=== PATIENT | female | born 1935 | race Caucasian/White ===

== ENCOUNTER 2020-06-27 18:14 | Inpatient (IN) ==
[2020-06-27] MEDS ORDERED: ACETAMINOPHEN 1,000 MG/100 ML VIAL IV STA (18:30)
[2020-06-27] MEDS ORDERED: SODIUM CHLORIDE 0.9% 1000ML 1,000 ML IV SCH (18:30)
[2020-06-27] MEDS ORDERED: CIPROFLOXACIN HCL 0.3% OP SOLN 2.5 ML BTL OP ONE (18:32)
--- NOTE | 2020-06-27 18:35 | Emergency Department Note ---
Impression & Plan Weakness, Acute dehydration, Hypomagnesemia, Elevated troponin, Acute bacterial conjunctivitis ED Provider Note NAME: GERARDO GODDARD AGE: 85 SEX: F : 1935 ARRIVES VIA: Ambulance INFORMANT: [Patient][ems] ED PROVIDER(S): [Gonzalez Decker MD] CHIEF COMPLAINT: Illness HISTORY OF PRESENT ILLNESS: The patient is an 85-year-old female who presents by EMS for weakness. The patient states that yesterday sometime in early afternoon, she went to the bathroom. She sat down on the toilet. She was unable to get off the toilet and has been there for over 24 hours. Neighbors apparently found her and helped her up and called the ambulance. The patient states that she lives alone. She has a life alert system but it was not with her on the toilet. The patient denies any pain right now. She denies feeling thirsty. She has a deformity to her left elbow which has been ongoing for the last several months. She states she fell and broke the elbow and that her orthopedic doctors could not do much with it. She also has a bruise to the top of her right foot which is from dropping a bottle on the foot about a week ago. The patient has not had chest pain, cough, cold or fever. She has not had urinary complaints or vomiting. She states she has not eaten or drank anything in 24 hours, she has not taking her regular medications. REVIEW OF SYSTEMS: See HPI for pertinent positives and negatives. A total of ten systems were reviewed and were otherwise negative. PMHx/PSHx: See Below SOCIAL HISTORY: See Below. PHYSICAL EXAM: GENERAL: Patient is in no acute distress. HEENT: No acute trauma, normocephalic atraumatic, mucous membranes dry, no nasal congestion, no scleral icterus. She has some yellowish discharge from the right eye and her right upper and lower lids are somewhat erythematous. The patient's eye lids are partially pasted shut. NECK: No stridor, no adenopathy, no meningismus, trachea is midline. LUNGS: Clear to auscultation bilaterally, no wheeze, no rhonchi, breath sounds equal. HEART: Subtle systolic murmur, regular rate and rhythm. ABDOMEN: Soft, nontender, bowel sounds positive, no hernias, no peritonitis. EXTREMITIES: No cyanosis. There is a deformity to her left elbow as noted in her history. She has minimal movement of this left elbow. There is some contusion above and around the left elbow. The contusion appears old. There is some edema to the left upper extremity primarily to her fingers and hand. Patient has a contusion which appears older to the top of her mid right foot. No gross deformity. There is edema to both by lower extremities which is moderate in severity. NEUROLOGIC: Oriented x 3, no acute motor or sensory deficits, no focal weakness. SKIN: The patient has skin breakdown to the area of her buttock. It is in a pattern consistent with sitting on the toilet. There is no ulcer. She is not jaundiced. Rectal: Brown stool heme negative. DIFFERENTIAL DIAGNOSIS: Infection, dehydration, metabolic abnormality, rhabdomyolysis, debilitation, extremity fracture, hypo/hyperglycemia, electrolyte disturbance, anemia, hypoxia, cardiac sources, intracerebral event, toxicologic, neurologic, as well as other pathologies. EMERGENCY DEPARTMENT COURSE/PROCEDURES: ECG: Indication was weakness. The ECG shows a sinus rhythm with some PACs. The rate is 73. The QTc is 480. There is no ST elevation, no PVCs. Continuous Cardiac Monitoring: An order was placed for continuous cardiac monitoring. The monitor shows a rate of 71 with sinus rhythm with some PACs. Critical Care Note: I have personally spent greater than 33 minutes of critical care time in the direct management of this patient. This includes bedside care, interpretation of diagnostic studies, and testing, discussion with consultants, patient, and family members, and other required patient management activities. This 33 minutes is in excess of all separately billable procedures. MEDICAL DECISION MAKING: There is no leukocytosis. The patient is anemic with a hemoglobin of 10. A rectal exam was performed, stool was brown and heme-negative. There is a normal platelet count. There is no coagulopathy. Magnesium is low at 1.7, no kidney failure. Lactic acid level was elevated at 3, I suspect this is from dehydration. There were a few subtle liver enzyme elevations. Total CK was elevated at 1300, this is consistent with her being on the toilet for 24 hours. The value is not high enough to truly diagnose rhabdomyolysis. Patient appears to be in a euthyroid state. Urinalysis does not show infection. Chest film does not show pneumonia or CHF. The left elbow film shows chronic fracture/dislocation. The right foot film shows a potential fracture line in the first cuneiform versus potentially just severe arthritis. The patient received IV saline for hydration. She was given IV magnesium, IV Tylenol. She was given Cipro drops to the right eye. The patient is dehydrated, she has been sitting in 1 spot for over 24 hours. She is weak. She is doing poorly at home. She requires some hydration and electrolyte replacement. I did speak to the patient's [id number]. The family is concerned about her safety at home. I spoke to the patient about her findings, she realizes the need for hospitalization. I did speak with case management. The on-call hospitalist was consulted. Past Med/Surg History Medical History Hypertension Surgical History S/P appendectomy Social History Smoking Status: Never smoker Feels Safe at Home: Yes Allergies Allergies Allergy/AdvReac Type Severity Reaction Status Date / Time ezetimibe Allergy Intermediate HIVES Verified 06/27/20 19:21 levothyroxine Allergy Intermediate HIVES Verified 06/27/20 19:53 rofecoxib Allergy Unknown UNKN Verified 06/27/20 19:21 esomeprazole AdvReac Intermediate DIARRHE Verified 06/27/20 19:21 tramadol AdvReac Intermediate NAUSEA & Verified 06/27/20 19:21 VOMITING Home Meds Home Medications Medication Instructions Recorded Confirmed acetaminophen [Tylenol Arthritis] 1,300 mg PO Q12H 06/27/20 06/27/20 aspirin [Aspir-Low] 81 mg PO DAILY 06/27/20 06/27/20 atenolol [Tenormin] 50 mg PO BID 06/27/20 06/27/20 atorvastatin [Lipitor] 10 mg PO DAILY 06/27/20 06/27/20 calcium carbonate-vitamin D3 1 tab PO BID 06/27/20 06/27/20 [Os-Gabriel 500 + D3] carboxymethylcellulose sodium 2 drp OPHTHALMIC (EYE) BID PRN 06/27/20 06/27/20 [Refresh] cyanocobalamin (vitamin B-12) 1,000 mcg PO DAILY 06/27/20 06/27/20 doxycycline hyclate 50 mg PO Q12 06/27/20 06/27/20 levothyroxine [Synthroid] 75 mcg PO DAILY 06/27/20 06/27/20 lisinopril [Prinivil] 20 mg PO DAILY 06/27/20 06/27/20 lorazepam 0.5 mg PO BID PRN 06/27/20 06/27/20 Results & Data (ED) Vital Signs Vital Signs - 24 hr 06/27/20 18:15 06/27/20 18:55 06/27/20 19:00 Temperature 36.8 C Temperature Source Oral Pulse Rate 82 74 Respiratory Rate 20 18 Respiratory Effort / Characteristics Non-Labored Respiratory Depth Normal Blood Pressure 126/72 132/61 Blood Pressure Mean 90 94 Pulse Oximetry 100 95 Oxygen Delivery Method Room Air Room Air Sepsis Recent Fever Within 48 Hours No Sepsis New/Unexplained Change in Mental Status N/A Sepsis Action Taken by Nursing No Action Required 06/27/20 19:35 06/27/20 20:00 06/27/20 20:30 Temperature Temperature Source Pulse Rate 71 61 71 Respiratory Rate 18 16 18 Respiratory Effort / Characteristics Respiratory Depth Blood Pressure 113/58 L 123/52 L 116/46 L Blood Pressure Mean 67 85 59 Pulse Oximetry 99 96 96 Oxygen Delivery Method Sepsis Recent Fever Within 48 Hours Sepsis New/Unexplained Change in Mental Status Sepsis Action Taken by Nursing 06/27/20 21:00 06/27/20 21:30 06/27/20 22:00 Temperature Temperature Source Pulse Rate 70 67 61 Respiratory Rate 18 22 16 Respiratory Effort / Characteristics Respiratory Depth Blood Pressure 108/49 L 113/48 L 112/55 L Blood Pressure Mean 65 71 80 Pulse Oximetry 97 98 98 Oxygen Delivery Method Sepsis Recent Fever Within 48 Hours Sepsis New/Unexplained Change in Mental Status Sepsis Action Taken by Nursing 06/27/20 22:30 06/27/20 23:00 Temperature Temperature Source Pulse Rate 55 L 65 Respiratory Rate 18 18 Respiratory Effort / Characteristics Respiratory Depth Blood Pressure 104/51 L 108/52 L Blood Pressure Mean 67 82 Pulse Oximetry 98 97 Oxygen Delivery Method Sepsis Recent Fever Within 48 Hours Sepsis New/Unexplained Change in Mental Status Sepsis Action Taken by [facility] Medications Current Medication List: was personally reviewed by me Laboratory Data Attestation: I reviewed the patient's lab results. Result diagrams: 06/27/20 19:25 06/27/20 19:25 Lab Results 06/27/20 06/27/20 06/27/20 Range/Units 19:25 19:25 19:25 WBC (4.8-10.8) K/uL RBC (4.2-5.4) M/uL Hgb (12.0-16.0) g/dL Hct (37-47) % MCV (80-100) fL MCH (25-34) pg MCHC (32-36) g/dL RDW Std Deviation (36.4-46.3) fL RDW Coeff of Michael (11.5-14.5) % Plt Count (130-400) K/uL MPV (7.4-10.4) fL Immature Gran % (Auto) % Neut % (Auto) % Lymph % (Auto) % [place] % (Auto) % Eos % (Auto) % Baso % (Auto) % Reticulocyte % (Auto) (0.5-2.0) % Neut # (Auto) (1.4-6.5) K/uL Lymph # (Auto) (1.2-3.4) K/uL Chester # (Auto) (0.11-0.59) K/uL Eos # (Auto) (0-0.5) K/uL Baso # (Auto) (0-0.2) K/uL Reticulocyte # (0.02-0.10) 10^6/uL Immature Gran # (Auto) (0.00-0.02) K/uL Absolute Nucleated RBC (0-0) K/uL Nucleated RBC % (auto) % PT 10.8 (9.0-12.0) Seconds INR 1.0 (0.9-1.1) Sodium 140 (136-145) mmol/L Potassium 3.7 (3.5-5.1) mmol/L Chloride 110 H (98-107) mmol/L Carbon Dioxide 21 (21-32) mmol/L Anion Gap 9.0 (3-11) BUN 39 H (7-18) mg/dl Creatinine 0.79 (0.6-1.2) mg/dl Est Cr Clr Drug Dosing Not Reportable Est GFR ( Amer) 78.0 Est GFR (Non-Af Amer) 67.3 BUN/Creatinine Ratio 49.2 H (10-20) Glucose 146 H (70-99) mg/dl Lactate 3.0 H* (0.4-2.0) mmol/L Calcium 9.0 (8.5-10.1) mg/dl Magnesium 1.7 L (1.8-2.4) mg/dl Total Bilirubin 0.9 (0.2-1) mg/dl AST 85 H (15-37) U/L ALT 52 (12-78) U/L Alkaline Phosphatase 76 (45-117) U/L Total Creatine Kinase 1321 H (26-192) U/L Troponin I 2.940 H* (0-0.045) ng/ml Total Protein 5.5 L (6.4-8.2) gm/dl Albumin 2.9 L (3.4-5.0) gm/dl Globulin 2.6 (2.5-4.0) gm/dl Albumin/Globulin Ratio 1.1 (0.9-2) TSH 2.750 (0.300-4.500) uIu/ml Urine Color Urine Appearance (Clear) Urine pH (4.5-7.5) Ur Specific [place] (1.000-1.030) Urine Protein (Negative) Urine Glucose (UA) (Negative) Urine Ketones (Negative) Urine Blood (Negative) Urine Nitrite (Negative) Urine Bilirubin (Negative) Urine Urobilinogen (Negative) Ur Leukocyte Esterase (Negative) Urine WBC (Auto) (0-5) /hpf Urine RBC (Auto) (0-4) /hpf U Hyaline Cast (Auto) (0-5) /lpf U Epithel Cells (Auto) (0-5) /lpf Urine Bacteria (Auto) (Negative) 06/27/20 06/27/20 06/27/20 Range/Units 19:25 19:25 19:30 WBC 10.68 (4.8-10.8) K/uL RBC 3.56 L (4.2-5.4) M/uL Hgb 10.0 L (12.0-16.0) g/dL Hct 31.7 L (37-47) % MCV 89.0 (80-100) fL MCH 28.1 (25-34) pg MCHC 31.5 L (32-36) g/dL RDW Std Deviation 55.4 H (36.4-46.3) fL RDW Coeff of Michael 17.0 H (11.5-14.5) % Plt Count 311 (130-400) K/uL MPV 10.0 (7.4-10.4) fL Immature Gran % (Auto) 0.7 % Neut % (Auto) 86.3 % Lymph % (Auto) 6.2 % Chester % (Auto) 6.7 % Eos % (Auto) 0.0 % Baso % (Auto) 0.1 % Reticulocyte % (Auto) 1.7 (0.5-2.0) % Neut # (Auto) 9.22 H (1.4-6.5) K/uL Lymph # (Auto) 0.66 L (1.2-3.4) K/uL Chester # (Auto) 0.72 H (0.11-0.59) K/uL Eos # (Auto) 0.00 (0-0.5) K/uL Baso # (Auto) 0.01 (0-0.2) K/uL Reticulocyte # 0.06 (0.02-0.10) 10^6/uL Immature Gran # (Auto) 0.07 H (0.00-0.02) K/uL Absolute Nucleated RBC 0.03 H (0-0) K/uL Nucleated RBC % (auto) 0.3 % PT (9.0-12.0) Seconds INR (0.9-1.1) Sodium (136-145) mmol/L Potassium (3.5-5.1) mmol/L Chloride (98-107) mmol/L Carbon Dioxide (21-32) mmol/L Anion Gap (3-11) BUN (7-18) mg/dl Creatinine (0.6-1.2) mg/dl Est Cr Clr Drug Dosing Est GFR ( Amer) Est GFR (Non-Af Amer) BUN/Creatinine Ratio (10-20) Glucose (70-99) mg/dl Lactate (0.4-2.0) mmol/L Calcium (8.5-10.1) mg/dl Magnesium (1.8-2.4) mg/dl Total Bilirubin (0.2-1) mg/dl AST (15-37) U/L ALT (12-78) U/L Alkaline Phosphatase (45-117) U/L Total Creatine Kinase (26-192) U/L Troponin I (0-0.045) ng/ml Total Protein (6.4-8.2) gm/dl Albumin (3.4-5.0) gm/dl Globulin (2.5-4.0) gm/dl Albumin/Globulin Ratio (0.9-2) TSH (0.300-4.500) uIu/ml Urine Color Yellow Urine Appearance Clear (Clear) Urine pH 5.0 (4.5-7.5) Ur Specific [place] 1.025 (1.000-1.030) Urine Protein 1+ H (Negative) Urine Glucose (UA) Negative (Negative) Urine Ketones 1+ H (Negative) Urine Blood Negative (Negative) Urine Nitrite Negative (Negative) Urine Bilirubin Negative (Negative) Urine Urobilinogen Negative (Negative) Ur Leukocyte Esterase Negative (Negative) Urine WBC (Auto) 1-5 (0-5) /hpf Urine RBC (Auto) 0-4 (0-4) /hpf U Hyaline Cast (Auto) 5-10 H (0-5) /lpf U Epithel Cells (Auto) 5-10 H (0-5) /lpf Urine Bacteria (Auto) Negative (Negative) Administered Medications Lactated Ringer's (Lr) 1,000 mls @ 150 mls/hr IV .Q6H40M STA Stop: 06/28/20 05:49 Last Admin: 06/27/20 23:24 Dose: 150 mls/hr Documented by: [id number] Discontinued Medications Ciprofloxacin (Ciprofloxacin Hcl 0.3% Op Soln 2.5 Ml Btl) 1 drops OP NOW ONE Stop: 06/27/20 18:33 Last Admin: 06/27/20 19:10 Dose: 1 drops Documented by: [id number] Sodium Chloride (Nss 1000ml) 1,000 mls @ 999 mls/hr IV .Q1H1M MADELINE Stop: 06/27/20 19:30 Last Infusion: 06/27/20 20:44 Dose: 0 mls/hr Documented by: [id number] Admin: 06/27/20 19:43 Dose: 999 mls/hr Documented by: [id number] Acetaminophen (Ofirmev) 1,000 mg in 100 mls @ 400 mls/hr IV NOW STA Stop: 06/27/20 18:44 Last Infusion: 06/27/20 19:58 Dose: 0 mls/hr Documented by: [id number] Admin: 06/27/20 19:43 Dose: 400 mls/hr Documented by: [id number] Magnesium Sulfate/Dextrose (Magnesium Sulfate / D5w) 1 gm in 100 mls @ 100 mls/hr IV NOW STA Stop: 06/27/20 21:10 Last Infusion: 06/27/20 21:33 Dose: 0 mls/hr Documented by: [id number] Admin: 06/27/20 20:33 Dose: 100 mls/hr Documented by: [id number] Imaging Data Radiologist's Impression: XR chest 1V portable HISTORY: 85 years-old Female weakness acute weakness status post fall COMPARISON: Acute abdominal series radiographs 06/11/2014 TECHNIQUE: Supine AP view of the chest FINDINGS: Cardiomegaly. Calcified plaque of the thoracic aortic arch. Pleural thickening of the lung apices. No pneumothorax, pleural effusion, overt pulmonary edema or airspace consolidation typical for pneumonia. Skin folds project over the right lung base. Degenerative changes of the shoulders and spine. Findings suggest prior resection of the distal left clavicle. IMPRESSION: No acute process. XR elbow LT min 3V routine HISTORY: 85 years-old Female deformity acute left elbow pain status post fall COMPARISON: None TECHNIQUE: 3 views of the left elbow FINDINGS: Demineralized appearance of the bones. Periarticular ossifications are present. There is dislocation of the radiocapitellar and trochlear olecranon articulations with chronic remodeling changes. There is a 4.4 cm corticated ossification along the posterior margin of the elbow suggests remote fracture fragment. No definitive acute fracture identified. Soft tissue prominence from the elbow is suggestive of a joint effusion. IMPRESSION: Grossly abnormal appearance of the elbow is suggestive of chronic dislocation/erosion with associated remodeling changes. A neuropathic joint could cause this appearance. No definitive acute fracture identified, however evaluation is limited secondary to positioning and bone demineralization. XR foot RT min 3V routine HISTORY: 85 years-old Female trauma, contusion acute posttraumatic right foot pain COMPARISON: None TECHNIQUE: 3 views of the right foot FINDINGS: Demineralized appearance of the bones with severe multifocal osteoarthritis. Chronic appearing dislocation with remodeling changes throughout the metatarsal- phalangeal joints. Linear lucency involves the medial cortex of the first cuneiform. There is mild soft tissue swelling throughout the forefoot. No acute displaced fracture or dislocation. Chronic erosive/resorptive changes are noted involving the distal fifth metatarsal. Pes planus deformity with midfoot collapse and subtalar degenerative bony fusion. IMPRESSION: 1. Demineralized appearance of the bones with chronic findings as above. 2. Mild forefoot soft tissue swelling with linear longitudinal lucency involving the medial cortex of the first cuneiform. Correlate with point tenderness to exclude acute nondisplaced fracture. Blood Pressure Blood Pressure Findings: Normal blood pressure Discharge Plan Visit Data Chief Complaint: Illness ED Provider: Gonzalez Decker Discharge Problem: Weakness, Acute dehydration, Hypomagnesemia, Elevated troponin, Acute bacterial conjunctivitis Patient Disposition: Admitted As Inpatient Condition: Fair Forms Stand Alone Forms: [facility] Prescriptions Prescriptions: No Action atorvastatin [Lipitor] 10 mg tablet 10 mg PO DAILY RF: 0 lisinopril [Prinivil] 20 mg tablet 20 mg PO DAILY RF: 0 doxycycline hyclate 50 mg capsule 50 mg PO Q12 RF: 0 cyanocobalamin (vitamin B-12) 1,000 mcg Tablet 1,000 mcg PO DAILY RF: 0 aspirin [Aspir-Low] 81 mg Tablet,Delayed Release (Dr/Ec) 81 mg PO DAILY RF: 0 acetaminophen [Tylenol Arthritis] 650 mg Tablet Extended Release 1,300 mg PO Q12H RF: 0 levothyroxine [Synthroid] 75 mcg tablet 75 mcg PO DAILY RF: 0 lorazepam 0.5 mg tablet 0.5 mg PO BID PRN (Reason: Anxiety) RF: 0 atenolol [Tenormin] 50 mg tablet 50 mg PO BID RF: 0 calcium carbonate-vitamin D3 [Os-Gabriel 500 + D3] 500 mg(1,250mg) -200 unit Tablet 1 tab PO BID RF: 0 Refresh 1 % Drops, Liquid Gel 2 drp OPHTHALMIC (EYE) BID PRN (Reason: ..) RF: 0 Referrals Referrals: PCP,NO [Primary Care Provider] - Discharge Problem: Acute bacterial conjunctivitis Qualifiers: Laterality: right Qualified Code(s): H10.31 - Unspecified acute conjunctivitis, right eye
--- NOTE | 2020-06-27 19:18 | XRay Report ---
XR chest 1V portable HISTORY: 85 years-old Female weakness acute weakness status post fall COMPARISON: Acute abdominal series radiographs 06/11/2014 TECHNIQUE: Supine AP view of the chest FINDINGS: Cardiomegaly. Calcified plaque of the thoracic aortic arch. Pleural thickening of the lung apices. No pneumothorax, pleural effusion, overt pulmonary edema or airspace consolidation typical for pneumoni a. Skin folds project over the right lung base. Degenerative changes of the shoulders and spine. Find ings suggest prior resection of the distal left clavicle. IMPRESSION: No acute process. ACT 112: Negative or not required by law. The above report was generated using voice recognition software. It may contain grammatical, syntax o r spelling errors. Electronically signed by: Branden Morton M.D. 06/27/2020 7:17 PM
--- NOTE | 2020-06-27 19:22 | XRay Report ---
XR elbow LT min 3V routine HISTORY: 85 years-old Female deformity acute left elbow pain status post fall COMPARISON: None TECHNIQUE: 3 views of the left elbow FINDINGS: Demineralized appearance of the bones. Periarticular ossifications are present. There is dislocation of the radiocapitellar and trochlear olecranon articulations with chronic remodeling changes. There i s a 4.4 cm corticated ossification along the posterior margin of the elbow suggests remote fracture f ragment. No definitive acute fracture identified. Soft tissue prominence from the elbow is suggestive of a joint effusion. IMPRESSION: Grossly abnormal appearance of the elbow is suggestive of chronic dislocation/erosion wit h associated remodeling changes. A neuropathic joint could cause this appearance. No definitive acut e fracture identified, however evaluation is limited secondary to positioning and bone demineralizati on. ACT 112: Negative or not required by law. The above report was generated using voice recognition software. It may contain grammatical, syntax o r spelling errors. Electronically signed by: Branden Morton M.D. 06/27/2020 7:21 PM
--- NOTE | 2020-06-27 19:25 | XRay Report ---
XR foot RT min 3V routine HISTORY: 85 years-old Female trauma, contusion acute posttraumatic right foot pain COMPARISON: None TECHNIQUE: 3 views of the right foot FINDINGS: Demineralized appearance of the bones with severe multifocal osteoarthritis. Chronic appearing disloc ation with remodeling changes throughout the metatarsal-phalangeal joints. Linear lucency involves th e medial cortex of the first cuneiform. There is mild soft tissue swelling throughout the forefoot. N o acute displaced fracture or dislocation. Chronic erosive/resorptive changes are noted involving the distal fifth metatarsal. Pes planus deformity with midfoot collapse and subtalar degenerative bony f usion. IMPRESSION: 1. Demineralized appearance of the bones with chronic findings as above. 2. Mild forefoot soft tissue swelling with linear longitudinal lucency involving the medial cortex of the first cuneiform. Correlate with point tenderness to exclude acute nondisplaced fracture. ACT 112: Negative or not required by law. The above report was generated using voice recognition software. It may contain grammatical, syntax o r spelling errors. Electronically signed by: Branden Morton M.D. 06/27/2020 7:23 PM
[2020-06-27 19:41] LABS: Basophils # (auto) 0.01 K/uL (0-0.2); Basophils % (auto) 0.1 %; Hematocrit (blood only) 31.7 % (37-47); Immature Granulocytes # (auto) 0.07 K/uL (0.00-0.02); Immature Granulocytes % (auto) 0.7 %; Lymphocytes # (auto) 0.66 K/uL (1.2-3.4); Lymphocytes % (auto) 6.2 %; Mean Corpuscular Hemoglobin 28.1 pg (25-34); Mean Corpuscular Hgb Conc 31.5 g/dL (32-36); Monocytes # (auto) 0.72 K/uL (0.11-0.59); Monocytes % (auto) 6.7 %; Neutrophils # (auto) 9.22 K/uL (1.4-6.5); Neutrophils % (auto) 86.3 %; Nucleated RBC # (auto) 0.03 K/uL (0-0); Nucleated RBC % (auto) 0.3 %; Platelet Count 311 K/uL (130-400); RDW Standard Deviation 55.4 fL (36.4-46.3); Red Blood Count 3.56 M/uL (4.2-5.4); White Blood Count 10.68 K/uL (4.8-10.8)
[2020-06-27 19:44] LABS: Appearance Urine Clear (Clear); Bacteria Urine Automated Negative (Negative); Bilirubin Urine Negative (Negative); Blood Urine Negative (Negative); Color Urine Yellow; Glucose Urine UA Negative (Negative); Ketones Urine 1+ (Negative); Leukocyte Esterase Urine Negative (Negative); Nitrite Urine Negative (Negative); Protein Urine 1+ (Negative); RBC Urine Automated 0-4 /hpf (0-4); Specific Gravity Urine 1.025 (1.000-1.030); Urobilinogen Urine Negative (Negative)
[2020-06-27 19:52] LABS: Prothrombin Time 10.8 Seconds (9.0-12.0)
[2020-06-27 20:00] LABS: Alanine Aminotransferase 52 U/L (12-78); Albumin Level 2.9 gm/dl (3.4-5.0); Aspartate Aminotransferase 85 U/L (15-37); BUN Creatinine Ratio 49.2 (10-20); Blood Urea Nitrogen 39 mg/dl (7-18); Carbon Dioxide 21 mmol/L (21-32); Chloride 110 mmol/L (98-107); Est GFR (Non-African American) 67.3; Glucose 146 mg/dl (70-99); Magnesium 1.7 mg/dl (1.8-2.4); Potassium 3.7 mmol/L (3.5-5.1); Sodium 140 mmol/L (136-145)
[2020-06-27] MEDS ORDERED: MAGNESIUM SULFATE / D5W 1 GM/100 ML BAG IV STA (20:11)
[2020-06-27 20:21] LABS: Albumin Globulin Ratio 1.1 (0.9-2); Alkaline Phosphatase 76 U/L (45-117); Bilirubin,Total 0.9 mg/dl (0.2-1); Creatine Kinase 1321 U/L (26-192); Globulin 2.6 gm/dl (2.5-4.0); Total Protein 5.5 gm/dl (6.4-8.2)
[2020-06-27] MEDS ORDERED: LACTATED RINGER'S 1,000 ML IV STA (23:10)
[2020-06-27 23:25] LABS: Reticulocyte % 1.7 % (0.5-2.0); Reticulocytes # 0.06 10^6/uL (0.02-0.10)
--- NOTE | 2020-06-27 23:48 | History & Physical Report ---
Date of Service June 27, 2020 Assessment & Plan (1) Rhabdomyolysis: Secondary to immobility from worsening rheumatoid arthritis Troponin elevation, transaminitis secondary to rhabdomyolysis New onset anemia, possibly from accumulated bruising from recurrent falls in the last year (Stool FOBT done by ER provider negative) Worsening left elbow pain, history L elbow dislocation/olecranon process fracture (03/2020) status post conservative management Traumatic right foot swelling hypertension, BP on the lower side hyperlipidemia on statin Rx hypothyroidism, euthyroid as of today's TSH hx TIA/PVD as per records DM2, diet-controlled, well-controlled as of recent outpatient hemoglobin A1c of 6.07 April 2020 Functional disability Malnutrition (low BMI) Medical telemetry IVF, follow CPK Follow troponin, TTE if with progression Orthopedics consult RE worsening left elbow pain/swelling and traumatic right foot swelling Appropriate to decrease maintenance beta-wendy medication for now and to hold lisinopril given borderline blood pressure. Anemia work-up, transfuse PRBC if hemoglobin less than 8 and or for symptomatic anemia ISS BG goal [id number] Nutrition consult RE low BMI PT OT eval Social service RE discharge planning (patient amenable to placement pending PT OT assessment and recommendations) DVT prophylaxis. Heparin subcu Full code Text document was generated using [employer] voice recognition software. It may contain grammatical or spelling errors. Kindly contact undersigned for clarification of any documentation item in question. History of Present Illness Chief Complaint: Unable to get up from the commode since yesterday Primary Care Provider: Dr. Ochoa History obtained from patient Cindy and records. Medical history significant for rheumatoid arthritis, hypertension, hyperlipidemia, hypothyroidism, hx TIA/PVD as per records, DM2 diet-controlled. Patient seen at [facility] ER last November, for right elbow injury secondary to fall. X-ray showed chronic severe deformity of right elbow characterized by destruction of normal bony articular joint surfaces, Calcifications in the soft tissues and joint space. No acute pathology found. Conservative management by patient's orthopedic doctor from [place]. 3 months ago patient noted pain and swelling on the left elbow. Outpatient x-ray showed left elbow dislocation and olecranon process fracture, severe multifocal arthritis. Marked osteoporosis. Temporary casting ordered by academic specialist as per patient. 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 Increased trouble with performing activities of daily living with elbow problems the last few months. Some trouble with ambulation as well. Periodic home health visits. Worsening left elbow pain/swelling the last 3 weeks without fever, chills. Patient went to go to the bathroom after dinner last night. Had trouble getting up from the commode. Patient denies chest pain, shortness of breath, cough, abdominal pain, diarrhea, black/bloody stools, headache, syncope symptoms. At some point overnight, patient dropped a water bottle on her right foot leading to a mildly painful swelling. Neighbors eventually heard patient yelling from her home. Patient brought to the ER for evaluation. Medical History as above Surgical History : Knee surgeries, appendectomy, ovarian cyst removal, cataract surgery, elbow nodule removal Family History : Rheumatoid arthritis, diabetes, heart disease, stroke Personal/Social history : Non-smoker, no EtOH intake, retired bank employee, lives by herself Allergies Allergy/AdvReac Type Severity Reaction Status Date / Time ezetimibe Allergy Intermediate HIVES Verified 06/27/20 19:21 levothyroxine Allergy Intermediate HIVES Verified 06/27/20 19:53 rofecoxib Allergy Unknown UNKN Verified 06/27/20 19:21 esomeprazole AdvReac Intermediate DIARRHE Verified 06/27/20 19:21 tramadol AdvReac Intermediate NAUSEA & Verified 06/27/20 19:21 VOMITING Home Medications Home Medications Medication Instructions Recorded Confirmed Type acetaminophen [Tylenol Arthritis] 1,300 mg PO Q12H 06/27/20 06/27/20 History aspirin [Aspir-Low] 81 mg PO DAILY 06/27/20 06/27/20 History atenolol [Tenormin] 50 mg PO BID 06/27/20 06/27/20 History atorvastatin [Lipitor] 10 mg PO DAILY 06/27/20 06/27/20 History calcium carbonate-vitamin D3 1 tab PO BID 06/27/20 06/27/20 History [Os-Gabriel 500 + D3] carboxymethylcellulose sodium 2 drp OPHTHALMIC (EYE) BID PRN 06/27/20 06/27/20 History [Refresh] cyanocobalamin (vitamin B-12) 1,000 mcg PO DAILY 06/27/20 06/27/20 History doxycycline hyclate 50 mg PO Q12 06/27/20 06/27/20 History levothyroxine [Synthroid] 75 mcg PO DAILY 06/27/20 06/27/20 History lisinopril [Prinivil] 20 mg PO DAILY 06/27/20 06/27/20 History lorazepam 0.5 mg PO BID PRN 06/27/20 06/27/20 History Past Med/Surg History Medical History Hypertension Surgical History S/P appendectomy Social History Smoking Status: Never smoker Hx Alcohol Use: No Hx Substance Use: No Preferred Language: Gibraltarian Communication Ability: Effective Mill Set Up Required: No Beliefs That Will Affect Care: None Current Living Situation: Alone Feels Safe at Home: Yes Safety Concerns: Feels Safe At This Time Assistive Devices: Denture - Upper and Denture - Lower Review of Systems Review of Systems: As per HPI, all 10 systems reviewed, chronic dry eyes, all other ROS negative Physical Exam Physical Exam: GENERAL: Comfortable, pleasant, underweight, frail looking, no respiratory distress SKIN: Pallor, warm HEENT: Pale palpebral conjunctivae, R eye closed from chronic dry eye condition as per patient, dry buccal mucosa NECK : Supple, no tenderness CHEST : CTA, no tenderness HEART : RRR, no obvious murmurs ABDOMEN: Soft, nontender EXTREMITIES : Chronic contractures upper extremities, bilateral elbow swelling L>R with minimal tenderness, minimal right foot swelling with tenderness NEUROLOGIC : Coherent, no facial asymmetry, no other gross focality Results & Data Results & Data ([facility]) Vital Signs (Past 12 Hours) Vital Signs Temp Pulse Resp BP Pulse Ox 06/27/20 23:00 65 18 108/52 L 97 06/27/20 22:30 55 L 18 104/51 L 98 06/27/20 22:00 61 16 112/55 L 98 06/27/20 21:30 67 22 113/48 L 98 06/27/20 21:00 70 18 108/49 L 97 06/27/20 20:30 71 18 116/46 L 96 06/27/20 20:00 61 16 123/52 L 96 06/27/20 19:35 71 18 113/58 L 99 06/27/20 19:00 74 18 132/61 95 06/27/20 18:15 36.8 C 82 20 126/72 100 Laboratory Results Laboratory Results WBC 10.68 K/uL (4.8-10.8) 06/27/20 19:25 RBC 3.56 M/uL (4.2-5.4) L 06/27/20 19:25 Hgb 10.0 g/dL (12.0-16.0) L 06/27/20 19:25 Hct 31.7 % (37-47) L 06/27/20 19:25 MCV 89.0 fL (80-100) 06/27/20 19: MCH 28.1 pg (25-34) 06/27/20 19: MCHC 31.5 g/dL (32-36) L 06/27/20 19: RDW Std Deviation 55.4 fL (36.4-46.3) H 06/27/20 19:25 RDW Coeff of Michael 17.0 % (11.5-14.5) H 06/27/20: Plt Count 311 K/uL (130-400) 06/27/20 19:25 MPV 10.0 fL (7.4-10.4) 06/27/20 19:25 Immature Gran % (Auto) 0.7 % 06/27/20 19:25 Neut % (Auto) 86.3 % 06/27/20 19:25 Lymph % (Auto) 6.2 % 06/27/20 19:25 [place] % (Auto) 6.7 % 06/27/20 19:25 Eos % (Auto) 0.0 % 06/27/20 19: Baso % (Auto) 0.1 % 06/27/20 19:25 Reticulocyte % (Auto) 1.7 % (0.5-2.0) 06/27/20 19:25 Neut # (Auto) 9.22 K/uL (1.4-6.5) H 06/27/20 19:25 Lymph # (Auto) 0.66 K/uL (1.2-3.4) L 06/27/20 19:25 [place] # (Auto) 0.72 K/uL (0.11-0.59) H 06/27/20 19:25 Eos # (Auto) 0.00 K/uL (0-0.5) 06/27/20 19:25 Baso # (Auto) 0.01 K/uL (0-0.2) 06/27/20 19:25 Reticulocyte # 0.06 10^6/uL (0.02-0.10) 06/27/20 19:25 Immature Gran # (Auto) 0.07 K/uL (0.00-0.02) H 06/27/20 19:25 Absolute Nucleated RBC 0.03 K/uL (0-0) H 06/27/20 19:25 Nucleated RBC % (auto) 0.3 % 06/27/20 19:25 PT 10.8 Seconds (9.0-12.0) 06/27/20 19:25 INR 1.0 (0.9-1.1) 06/27/20 19:25 Sodium 140 mmol/L (136-145) 06/27/20 19:25 Potassium 3.7 mmol/L (3.5-5.1) 06/27/20 19:25 Chloride 110 mmol/L (98-107) H 06/27/20 19:25 Carbon Dioxide 21 mmol/L (21-32) 06/27/20 19:25 Anion Gap 9.0 (3-11) 06/27/20 19:25 BUN 39 mg/dl (7-18) H 06/27/20 19:25 Creatinine 0.79 mg/dl (0.6-1.2) 06/27/20 19:25 Est Cr Clr Drug Dosing Not Reportable 06/27/20 19:25 Est GFR ( Amer) 78.0 06/27/20 19:25 Est GFR (Non-Af Amer) 67.3 06/27/20 19:25 BUN/Creatinine Ratio 49.2 (10-20) H 06/27/20 19:25 Glucose 146 mg/dl (70-99) H 06/27/20 19:25 Lactate 3.0 mmol/L (0.4-2.0) H* 06/27/20 19:25 Calcium 9.0 mg/dl (8.5-10.1) 06/27/20 19:25 Magnesium 1.7 mg/dl (1.8-2.4) L 06/27/20 19:25 Total Bilirubin 0.9 mg/dl (0.2-1) 06/27/20 19:25 AST 85 U/L (15-37) H 06/27/20 19:25 ALT 52 U/L (12-78) 06/27/20 19:25 Alkaline Phosphatase 76 U/L (45-117) 06/27/20 19:25 Total Creatine Kinase 1321 U/L (26-192) H 06/27/20 19:25 Troponin I 2.940 ng/ml (0-0.045) H* 06/27/20 19:25 Total Protein 5.5 gm/dl (6.4-8.2) L 06/27/20 19:25 Albumin 2.9 gm/dl (3.4-5.0) L 06/27/20 19:25 Globulin 2.6 gm/dl (2.5-4.0) 06/27/20 19:25 Albumin/Globulin Ratio 1.1 (0.9-2) 06/27/20 19:25 TSH 2.750 uIu/ml (0.300-4.500) 06/27/20 19:25 Urine Color Yellow 06/27/20 19:30 Urine Appearance Clear (Clear) 06/27/20 19: Urine pH 5.0 (4.5-7.5) 06/27/20 19:30 Ur Specific [place] 1.025 (1.000-1.030) 06/27/20 19:30 Urine Protein 1+ (Negative) H 06/27/20 19:30 Urine Glucose (UA) Negative (Negative) 06/27/20 19:30 Urine Ketones 1+ (Negative) H 06/27/20 19:30 Urine Blood Negative (Negative) 06/27/20 19:30 Urine Nitrite Negative (Negative) 06/27/20 19:30 Urine Bilirubin Negative (Negative) 06/27/20 19:30 Urine Urobilinogen Negative (Negative) 06/27/20 19:30 Ur Leukocyte Esterase Negative (Negative) 06/27/20 19:30 Urine WBC (Auto) 1-5 /hpf (0-5) 06/27/20 19:30 Urine RBC (Auto) 0-4 /hpf (0-4) 06/27/20 19:30 U Hyaline Cast (Auto) 5-10 /lpf (0-5) H 06/27/20 19:30 U Epithel Cells (Auto) 5-10 /lpf (0-5) H 06/27/20 19:30 Urine Bacteria (Auto) Negative (Negative) 06/27/20 19:30 stool FOBT negative as per ER provider Diagnostic Findings Chest x-ray : No acute process. Left foot x-ray: 1. Demineralized appearance of the bones with chronic findings as above. 2. Mild forefoot soft tissue swelling with linear longitudinal lucency involving the medial cortex of the first cuneiform. Correlate with point tenderness to exclude acute nondisplaced fracture. Left elbow x-ray: Grossly abnormal appearance of the elbow is suggestive of chronic dislocation/erosion with associated remodeling changes. A neuropathic joint could cause this appearance. No definitive acute fracture identified, however evaluation is limited secondary to positioning and bone demineralization. EKG as per my interpretation : Rate 75, NSR, normal axis, no ischemia, PVCs
[2020-06-28] MEDS ORDERED: DEXTROSE 50% 50 ML SYRINGE IV PRN (01:25)
[2020-06-28] MEDS ORDERED: GLUCOSE 40% GEL 15 GM TUBE PO PRN (01:25)
[2020-06-28] MEDS ORDERED: PROMETHAZINE HCL 6.25 MG in SODIUM CHLORIDE 0.9% 50 ML IV PRN (01:25)
[2020-06-28] MEDS ORDERED: TRAMADOL HCL 50 MG TABLET PO PRN (01:25)
[2020-06-28] MEDS ORDERED: CARBOHYDRATES FOR HYPOGLYCEMIA PO PRN (01:25)
[2020-06-28] MEDS ORDERED: LORazepam 0.5 MG TAB PO PRN (01:25)
[2020-06-28] MEDS ORDERED: GLUCOSE 10 TABS/TUBE PO PRN (01:25)
[2020-06-28] MEDS ORDERED: GLUCAGON FOR INJ 1 MG VIAL SQ PRN (01:25)
[2020-06-28] MEDS: INSULIN ASPART 100 UNITS/ML 3 ML PEN SC SCH ×5 (04:31→20:51)
[2020-06-28] MEDS ORDERED: LACTATED RINGER'S 1,000 ML IV SCH (06:00)
[2020-06-28 06:05] LABS: Hematocrit (blood only) 25.3 % (37-47); Hemoglobin 8.3 g/dL (12.0-16.0); Immature Granulocytes # (auto) 0.04 K/uL (0.00-0.02); Immature Granulocytes % (auto) 0.6 %; Mean Corpuscular Hgb Conc 32.8 g/dL (32-36); Mean Corpuscular Volume 88.5 fL (80-100); Mean Platelet Volume 9.5 fL (7.4-10.4); Monocytes # (auto) 0.67 K/uL (0.11-0.59); Monocytes % (auto) 10.4 %; Neutrophils # (auto) 4.81 K/uL (1.4-6.5); Platelet Count 239 K/uL (130-400); RDW Coefficient of Variation 17.2 % (11.5-14.5); RDW Standard Deviation 55.8 fL (36.4-46.3); Red Blood Count 2.86 M/uL (4.2-5.4); Reticulocyte % 1.8 % (0.5-2.0); Reticulocytes # 0.05 10^6/uL (0.02-0.10); White Blood Count 6.42 K/uL (4.8-10.8)
[2020-06-28] MEDS: LEVOTHYROXINE SODIUM 75 MCG TABLET PO SCH (06:24)
[2020-06-28] MEDS: HEPARIN SOD 5,000 UNIT/0.5 ML VIAL SQ SCH ×3 (06:26→21:07)
[2020-06-28 06:55] LABS: Albumin Level 2.3 gm/dl (3.4-5.0); Calcium 8.1 mg/dl (8.5-10.1); Creatinine Clr Calc Pharmacy 43.9 ml/min; Est GFR (African American) 92.5; Est GFR (Non-African American) 79.8; Ferritin 62.9 ng/ml (8-388); Globulin 2.3 gm/dl (2.5-4.0); Potassium 3.8 mmol/L (3.5-5.1); Total Protein 4.6 gm/dl (6.4-8.2); Troponin I 1.87 ng/ml (0-0.045)
[2020-06-28] MEDS ORDERED: LACTATED RINGER'S 1,000 ML IV ONE (07:08)
[2020-06-28 07:11] LABS: Partial Thromboplastin Ratio 0.9; Partial Thromboplastin Time 25.4 Seconds (21.0-31.0)
[2020-06-28] MEDS: CALCIUM 600MG + VIT D 400 IU TAB PO SCH ×2 (07:49→19:35)
[2020-06-28] MEDS: CYANOCOBALAMIN 500 MCG TABLET (VITAMIN B-12) PO SCH (07:49)
[2020-06-28] MEDS: ATENOLOL 25 MG TABLET PO SCH (07:49)
[2020-06-28] MEDS: ASPIRIN 81 MG ECTAB PO SCH (07:50)
[2020-06-28] MEDS: ARTIFICIAL TEARS OP SCH ×2 (07:52→19:35)
[2020-06-28] MEDS ORDERED: ATENOLOL 25 MG TABLET PO SCH (09:00)
--- NOTE | 2020-06-28 11:30 | Electrocardiogram Report ---
Test Reason : Blood Pressure : / mmHG Vent. Rate : 073 BPM Atrial Rate : 073 BPM P-R Int : 130 ms QRS Dur : 070 ms QT Int : 436 ms P-R-T Axes : 047 011 029 degrees QTc Int : 480 ms Sinus rhythm with Premature atrial complexes with Aberrant conduction Nonspecific ST abnormality Abnormal ECG No previous ECGs available Confirmed by Yony Horne ([id number]) on 06/28/2020 11:30:25 AM Referred By: REFERRED SELF Confirmed By:Yony Horne
[2020-06-28 13:19] LABS: Folate (Folic Acid) 8.23 ng/ml (>5.38)
--- NOTE | 2020-06-28 14:32 | Cardiology Consultation ---
Date of Consultation June 28, 2020 Assessment & Plan (1) Rhabdomyolysis: (2) Elevated troponin: (3) Rheumatoid arthritis flare: Patient asymptomatic from a cardiac standpoint. I do believe her troponin elevation is secondary to her rhabdomyolysis. We will check an echocardiogram for completeness sake. No cardiac medications were instituted at this point. History of Present Illness Reason for Consultation: Elevated troponin Requesting Physician: Dr. Corona Attending Physician: Nidhi Corona MD History of Present Illness It was my pleasure to see Mrs. Bueno in cardiac consultation today June 28, 2020. She is a very pleasant 85-year-old woman who suffers from severe rheumatic arthritis. Last evening she went to the commode but then was too weak to stand up. Unfortunately, she was stuck on the toilet for several hours until she was finally able to ambulate. At that time she came into the emergency department. Upon arrival her troponin was found to be elevated and she was admitted to telemetry. Currently she states that her lower back side is still sore but otherwise she is feeling well. She denies experiencing any cardiac complaints of chest pain, shortness of breath, palpitations, lightheadedness, dizziness or syncope. Allergies Allergy/AdvReac Type Severity Reaction Status Date / Time ezetimibe Allergy Intermediate HIVES Verified 06/27/20 19:21 levothyroxine Allergy Intermediate HIVES Verified 06/27/20 19:53 rofecoxib Allergy Unknown UNKN Verified 06/27/20 19:21 esomeprazole AdvReac Intermediate DIARRHE Verified 06/27/20 19:21 tramadol AdvReac Intermediate NAUSEA & Verified 06/27/20 19:21 VOMITING Home Medications Home Medications Medication Instructions Recorded Confirmed Type aspirin 81 mg PO DAILY 06/27/20 06/27/20 History atorvastatin [Lipitor] 10 mg PO DAILY 06/27/20 06/27/20 History calcium carbonate-vitamin D3 1 tab PO BID 06/27/20 06/27/20 History [Os-Gabriel 500 + D3] carboxymethylcellulose sodium 2 drp OPHTHALMIC (EYE) BID PRN 06/27/20 06/27/20 History cyanocobalamin (vitamin B-12) 1,000 mcg PO DAILY 06/27/20 06/27/20 History levothyroxine [Synthroid] 75 mcg PO DAILY 06/27/20 06/27/20 History lisinopril [Prinivil] 20 mg PO DAILY 06/27/20 06/27/20 History lorazepam 0.5 mg PO BID PRN 06/27/20 06/27/20 History acetaminophen 650 mg PO Q6H PRN #0 tab 06/30/20 06/27/20 Rx atenolol 12.5 mg PO BID 30 Days #30 tab 06/30/20 Rx doxycycline hyclate 20 mg PO DAILY 06/30/20 06/30/20 History lidocaine [Anecream] 1 applic EXT Q6H #30 g 06/30/20 Rx Patient History Medical History Elevated troponin Hypertension Hypomagnesemia Surgical History S/P appendectomy Social History Smoking Status: Never smoker Hx Alcohol Use: No Hx Substance Use: No Preferred Language: Hungarian Communication Ability: Effective Distribution System Operator Required: No Beliefs That Will Affect Care: None Current Living Situation: Alone Feels Safe at Home: Yes Safety Concerns: Feels Safe At This Time Assistive Devices: None Review of Systems Review of Systems: All systems reviewed & are unremarkable except as noted in HPI & below Physical Exam Physical Exam: General: Awake, alert and oriented x 3. No acute distress. HEENT: Normocephalic, atraumatic. Pupils equal, round and reactive to light and accommodation. Extraocular muscles are intact. Anicteric sclera. Moist mucous membranes. Neck: No JVD. No bruit. Cardiovascular: Regular. Positive S-4. Normal S-1 and S-2. No S-3. No murmurs or rubs. Pulmonary: Clear to auscultation B/L. No rales, rhonchi or wheezing Abdomen: Bowel sounds x 4, soft. No rebound, guarding or tenderness. No organomegaly. Extremities: No clubbing, cyanosis or edema. +2 pedal pulses bilaterally. Skin: Warm and dry. Results & Data ([facility]) Vital Signs (Past 12 Hours) Vital Signs Temp Pulse Pulse Resp BP Pulse Ox 06/28/20 11:26 36.7 C 67 16 130/61 06/28/20 08:20 62 06/28/20 08:00 37.1 C 78 20 124/67 91 06/28/20 07:57 63 06/28/20 02:47 36.7 C 59 L 21 105/62 98
--- NOTE | 2020-06-28 16:06 | Hospitalist Progress Note ---
Date of Service June 28, 2020 Assessment & Plan (1) Rhabdomyolysis: Secondary to immobility due to weakness was unable to get off the toilet and has been there for over 24 hours. CK level on admission 1321 Received IVF, CK dropped to 577 Will monitor closely Elevated troponin Related to Rhabdomyolysis Troponin on admission 2.9, then trending down to 1.9 EKG showed no acute ischemic changes ECHO showed no LV wall motion abnormality with EF 55-to 60 % asymptomatic Weakness Continue PT/OT fall precaution Not safe to live alone refuse inpatient rehab or SNF Anemia Possible related to anemia of chronic disease Hgb on admission 10, then dropped to 8.3 (possible due to dilution from IV fluid) Stool FOBT negative Continue monitor hemoglobin Elevated Liver enzymes AST 85 on admission, then 67 today Will monitor Liver enzymes Rheumatoid Arthritis Left elbow tenderness Right foot tenderness/swelling History L elbow dislocation/olecranon process fracture (03/2020) status post conservative management CXR showed abnormal appearance of the elbow is suggestive of chronic dislocation/erosion with associated remodeling changes. Ortho on board Pt does not want any surgical intervention Continue conservative management Continue pain control with Tylenol Will add lidocaine Hypertension BP on the lower side Continue monitor BP Hypomagnesium Mg 1.7 today Continue monitor electrolytes DM type 2 Most recent HA1c 6.7 on April 2020 Not on any DM med Continue monitor BS DVT px on heparin subq Code Status full code Admission and Anticipated Discharge Date Admission Date: June 27, 2020 Subjective Pt was seen and examined Sitting in chair with no distress Pt said that she feels a little better today She said that she feels tenderness in her thigh area Pt said that she lives alone She said that her pain is tolerable Denies any chest pain, palpitation, dizziness and SOB Physical Exam Physical Exam: General- No acute distress Head- atraumatic Eyes- PERRL, EOMI, ENT- oropharynx clear Neck- supple, no JVD Lungs- clear to auscultation Heart- regular rhythm; no murmur Abdomen- normal bowel sounds, soft, nontender Extremities- no calf tenderness, deformity in both hands, swelling/tenderness in elbow Neuro- alert, oriented x 3; PERRL, EOMI; no facial palsy; no dysarthria Skin- warm & dry Results & Data Results & Data ([facility]) Vital Signs (Past 12 Hours) Vital Signs Temp Pulse Pulse Resp BP Pulse Ox 06/28/20 15:41 36.8 C 64 20 106/60 99 06/28/20 11:26 36.7 C 67 16 130/61 06/28/20 08:20 62 06/28/20 08:00 37.1 C 78 20 124/67 91 06/28/20 07:57 63
--- NOTE | 2020-06-28 21:00 | Consultation Report ---
DATE OF CONSULTATION: 06/28/2020 HISTORY OF PRESENT ILLNESS: This is an 85-year-old right hand dominant female who apparently was unable to get up from the toilet since 06/26/2020. She became somewhat dizzy and weak and was unable to ambulate. She stayed on the toilet for approximately 24 hours without food or water. A neighbor found her, she was then transported to [facility]. She was evaluated and admitted to the hospitalist service. Incidentally, she also had some complaints of worsening left elbow pain and right dorsal foot pain unrelated to the cause for admission. The patient has had rheumatoid arthritis for approximately 50 years and her left elbow has been worsening steadily over the last several years. Conservative management has been adopted by Dr. Johnston and the patient did not seek any further subspecialist consultation as she is 85 and did not want to undergo a major reconstructive surgery for her elbow. Regarding her right foot, she states that she dropped something relatively heavy on it and then had bruising and pain. She has had no difficulty with ambulation with the exception of some minor limp. PAST MEDICAL HISTORY: Hypertension, rheumatoid arthritis. PAST SURGICAL HISTORY: Appendectomy. ALLERGIES: EZETIMIBE, LEVOTHYROXINE, ROFECOXIB, ESOMEPRAZOLE, AND TRAMADOL. MEDICATIONS: Please note the medications listed in the medical record. SOCIAL HISTORY: The patient lives alone. She is . She denies tobacco, alcohol or drug use. She is retired. PHYSICAL EXAMINATION: GENERAL: This is an 85-year-old female lying supine in her hospital room bed. She is alert and oriented x3. Speech clear and fluent. Affect is appropriate. No acute distress. EXTREMITIES: Examination of the left elbow demonstrates a chronically dislocated and deformed left elbow with limited range of motion. Mild tenderness to palpation due to chronic joint destruction secondary to rheumatoid arthritis. 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 Examination of the right dorsal foot demonstrates ecchymosis over the third tarsometatarsal joint region. No crepitation. Mild soft tissue edema. No fluctuance. Pedal pulses are palpable. She has a left hindfoot valgus with chronically subluxed hindfoot with limited range of motion. Radiographs were reviewed of the left elbow and the right foot demonstrating a chronically deformed left elbow with chronic dislocation, prior olecranon fracture. Right foot severely osteoporotic with no obvious fractures. There is a question of a lucency at the medial cuneiform, which appears to be chronic and incomplete. She has pes planovalgus deformity. IMPRESSION: 1. 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 2. Right dorsal foot contusion with ecchymosis, pes planovalgus. No acute fracture visualized. RECOMMENDATIONS: Continue weightbearing as tolerated. Conservative management of the left elbow. Ice to the dorsal right foot as necessary. Follow up on an outpatient basis as needed. Thank you for the opportunity to consult in the care of this patient, which is nonoperative at this time.
[2020-06-28] MEDS: OXYCODONE HCL IR 5 MG TAB (IMMEDIATE RELEASE) PO PRN (21:43)
[2020-06-29] MEDS: HEPARIN SOD 5,000 UNIT/0.5 ML VIAL SQ SCH ×3 (05:25→20:37)
[2020-06-29] MEDS: LEVOTHYROXINE SODIUM 75 MCG TABLET PO SCH (05:25)
[2020-06-29] MEDS: CALCIUM 600MG + VIT D 400 IU TAB PO SCH ×2 (08:15→20:34)
[2020-06-29] MEDS: ATENOLOL 25 MG TABLET PO SCH (08:16)
[2020-06-29] MEDS: ARTIFICIAL TEARS OP SCH ×2 (08:16→20:33)
[2020-06-29] MEDS: CYANOCOBALAMIN 500 MCG TABLET (VITAMIN B-12) PO SCH (08:16)
[2020-06-29] MEDS: ASPIRIN 81 MG ECTAB PO SCH (08:16)
[2020-06-29] MEDS: INSULIN ASPART 100 UNITS/ML 3 ML PEN SC SCH ×4 (08:18→20:31)
[2020-06-29] MEDS: OXYCODONE HCL IR 5 MG TAB (IMMEDIATE RELEASE) PO PRN (08:22)
[2020-06-29 08:49] LABS: Albumin Level 2.3 gm/dl (3.4-5.0); BUN Creatinine Ratio 52.1 (10-20); Calcium 8.7 mg/dl (8.5-10.1); Creatinine Clr Calc Pharmacy 55.2 ml/min; Est GFR (African American) 99.6; Est GFR (Non-African American) 85.9; Potassium 3.8 mmol/L (3.5-5.1)
[2020-06-29 09:01] LABS: Albumin Globulin Ratio 0.9 (0.9-2); Bilirubin,Total 0.6 mg/dl (0.2-1); Globulin 2.4 gm/dl (2.5-4.0); Total Protein 4.7 gm/dl (6.4-8.2)
[2020-06-29 09:58] LABS: Hematocrit (blood only) 26.1 % (37-47); Hemoglobin 8.5 g/dL (12.0-16.0); Mean Corpuscular Hemoglobin 29.1 pg (25-34); Mean Corpuscular Hgb Conc 32.6 g/dL (32-36); Mean Corpuscular Volume 89.4 fL (80-100); Mean Platelet Volume 9.5 fL (7.4-10.4); Platelet Count 229 K/uL (130-400); RDW Coefficient of Variation 17.3 % (11.5-14.5); RDW Standard Deviation 56.6 fL (36.4-46.3); Red Blood Count 2.92 M/uL (4.2-5.4); White Blood Count 6.32 K/uL (4.8-10.8)
--- NOTE | 2020-06-29 14:35 | Cardiology Progress Note ---
Date of Service June 29, 2020 Assessment & Plan (1) Rhabdomyolysis: (2) Elevated troponin: (3) Rheumatoid arthritis flare: Patient asymptomatic from a cardiac standpoint. I do believe her troponin elevation is secondary to her rhabdomyolysis. No wall motion abnormalities on echocardiogram. No further cardiac testing necessary at this time. Okay to DC telemetry or to home from a cardiac standpoint. Admission and Anticipated Discharge Date Admission Date: June 27, 2020 Subjective Patient seen and examined, chart reviewed. States that she is feeling better today. Still sore in her lower backside and thighs but continues to deny any cardiac complaints of chest pain, shortness of breath, palpitations, lightheadedness, dizziness or syncope. Telemetry reviewed: Normal sinus rhythm without arrhythmia or significant ectopy. Review of Systems Review of Systems: All systems reviewed & are unremarkable except as noted in HPI & below Physical Exam Physical Exam: General: Awake, alert and oriented x 3. No acute distress. HEENT: Normocephalic, atraumatic. Pupils equal, round and reactive to light and accommodation. Extraocular muscles are intact. Anicteric sclera. Moist mucous membranes. Neck: No JVD. No bruit. Cardiovascular: Regular. Positive S-4. Normal S-1 and S-2. No S-3. No murmurs or rubs. Pulmonary: Clear to auscultation B/L. No rales, rhonchi or wheezing Abdomen: Bowel sounds x 4, soft. No rebound, guarding or tenderness. No organomegaly. Extremities: No clubbing, cyanosis or edema. +2 pedal pulses bilaterally. Skin: Warm and dry. Results & Data ([facility]) Vital Signs (Past 12 Hours) Vital Signs Temp Pulse Pulse Resp BP Pulse Ox 06/29/20 12:06 36.5 C 69 18 128/68 94 06/29/20 07:56 53 L 06/29/20 07:39 36.7 C 66 18 149/87 H 100 06/29/20 03:10 37 C 60 20 126/70 99
--- NOTE | 2020-06-29 19:44 | Hospitalist Progress Note ---
Date of Service June 29, 2020 Assessment & Plan (1) Rhabdomyolysis: Secondary to immobility due to weakness was unable to get off the toilet and has been there for over 24 hours. CK level on admission 1321 Received IVF, CK dropped to 577 -->197 today Will monitor closely Elevated troponin Related to Rhabdomyolysis Troponin on admission 2.9, then trending down to 1.9 EKG showed no acute ischemic changes ECHO showed no LV wall motion abnormality with EF 55-to 60 % asymptomatic Ok from cardiology standpoint to DC telemetry or discharge Weakness Continue PT/OT fall precaution Not safe to live alone Will need 24hr supervision Agreed to go to inpatient rehab or SNF Anemia Possible related to anemia of chronic disease Hgb on admission 10, then dropped to 8.3 (possible due to dilution from IV fluid) Stool FOBT negative Hgb today 8.5 Continue monitor hemoglobin Elevated Liver enzymes AST 85 on admission, then 67 -->47 today Will monitor Liver enzymes Rheumatoid Arthritis Left elbow tenderness Right foot tenderness/swelling History L elbow dislocation/olecranon process fracture (03/2020) status post conservative management CXR showed abnormal appearance of the elbow is suggestive of chronic dislocation/erosion with associated remodeling changes. Ortho on board Pt does not want any surgical intervention Continue conservative management Continue pain control with Tylenol lidocaine cream prn Hypertension BP on the lower side Continue monitor BP Hypomagnesium Mg 1.7 Continue monitor electrolytes DM type 2 Most recent HA1c 6.7 on April 2020 Not on any DM med Continue monitor BS DVT px on heparin subq Code Status full code Admission and Anticipated Discharge Date Admission Date: June 27, 2020 Subjective Pt was seen and examined Sitting in bed with no distress Pt said that she feels ok Early today she was sitting on the toilet, she said that she was not able to get herself up She would like to go to rehab to get strong since she lives alone Denies any chest pain, palpitation and SOB Physical Exam Physical Exam: General- No acute distress Head- atraumatic Eyes- PERRL, EOMI, ENT- oropharynx clear Neck- supple, no JVD Lungs- clear to auscultation Heart- regular rhythm; no murmur Abdomen- normal bowel sounds, soft, nontender Extremities- no calf tenderness, deformity in both hands, swelling/tenderness in elbow Neuro- alert, oriented x 3; PERRL, EOMI; no facial palsy; no dysarthria Skin- warm & dry Results & Data Results & Data ([facility]) Vital Signs (Past 12 Hours) Vital Signs Temp Pulse Pulse Resp BP Pulse Ox 06/29/20 19:19 36.8 C 68 19 144/87 H 98 06/29/20 19:05 63 06/29/20 15:48 36.8 C 65 20 137/64 95 06/29/20 12:06 36.5 C 69 18 128/68 94 06/29/20 07:56 53 L
[2020-06-29] MEDS ORDERED: ACETAMINOPHEN 325 MG TAB PO PRN (20:35)
[2020-06-29] MEDS ORDERED: ACETAMINOPHEN 325 MG TAB ONE (20:39)
[2020-06-30] MEDS ORDERED: LIDOCAINE 4% CREAM 15 GM TUBE EXT PRN (00:22)
[2020-06-30] MEDS: HEPARIN SOD 5,000 UNIT/0.5 ML VIAL SQ SCH ×2 (06:13→14:34)
[2020-06-30] MEDS: LEVOTHYROXINE SODIUM 75 MCG TABLET PO SCH (06:13)
[2020-06-30 08:21] LABS: Hematocrit (blood only) 26.9 % (37-47); Hemoglobin 8.5 g/dL (12.0-16.0); Mean Corpuscular Hemoglobin 28.5 pg (25-34); Mean Corpuscular Hgb Conc 31.6 g/dL (32-36); Mean Corpuscular Volume 90.3 fL (80-100); Mean Platelet Volume 10.1 fL (7.4-10.4); Platelet Count 267 K/uL (130-400); RDW Coefficient of Variation 17.4 % (11.5-14.5); RDW Standard Deviation 57.7 fL (36.4-46.3); Red Blood Count 2.98 M/uL (4.2-5.4); White Blood Count 5.19 K/uL (4.8-10.8)
[2020-06-30] MEDS: ATENOLOL 25 MG TABLET PO SCH (08:35)
[2020-06-30] MEDS: CALCIUM 600MG + VIT D 400 IU TAB PO SCH (08:36)
[2020-06-30] MEDS: ARTIFICIAL TEARS OP SCH (08:36)
[2020-06-30] MEDS: CYANOCOBALAMIN 500 MCG TABLET (VITAMIN B-12) PO SCH (08:36)
[2020-06-30] MEDS: INSULIN ASPART 100 UNITS/ML 3 ML PEN SC SCH ×3 (08:39→17:18)
[2020-06-30] MEDS: ASPIRIN 81 MG ECTAB PO SCH (08:42)
[2020-06-30 08:56] LABS: Albumin Level 2.2 gm/dl (3.4-5.0); BUN Creatinine Ratio 30.9 (10-20); Calcium 8.4 mg/dl (8.5-10.1); Creatinine Clr Calc Pharmacy 54.3 ml/min; Est GFR (African American) 99.6; Est GFR (Non-African American) 85.9; Magnesium 1.8 mg/dl (1.8-2.4); Potassium 3.9 mmol/L (3.5-5.1)
[2020-06-30 09:03] LABS: Albumin Globulin Ratio 0.9 (0.9-2); Bilirubin,Total 0.6 mg/dl (0.2-1); Globulin 2.5 gm/dl (2.5-4.0); Total Protein 4.7 gm/dl (6.4-8.2)
--- NOTE | 2020-06-30 17:48 | Hospitalist Progress Note ---
Date of Service June 30, 2020 Assessment & Plan (1) Rhabdomyolysis: Secondary to immobility due to weakness was unable to get off the toilet and has been there for over 24 hours. CK level on admission 1321 Received IVF, CK dropped to 577 -->197 today Resolved Elevated troponin Related to Rhabdomyolysis Troponin on admission 2.9, then trending down to 1.9 EKG showed no acute ischemic changes ECHO showed no LV wall motion abnormality with EF 55-to 60 % asymptomatic Ok from cardiology standpoint to DC telemetry or discharge Stable Weakness Continue PT/OT fall precaution Not safe to live alone Will need 24hr supervision Agreed to go to inpatient rehab or SNF Will discharge to [facility] today COVID 19 negative today Anemia Possible related to anemia of chronic disease Hgb on admission 10, then dropped to 8.3 (possible due to dilution from IV fluid) Stool FOBT negative Hgb today 8.5 Check cbc in 1 week to monitor hemoglobin Elevated Liver enzymes AST 85 on admission, then 67 -->47---> 39 today Will monitor Liver enzymes Rheumatoid Arthritis Left elbow tenderness Right foot tenderness/swelling History L elbow dislocation/olecranon process fracture (03/2020) status post conservative management CXR showed abnormal appearance of the elbow is suggestive of chronic dislocation/erosion with associated remodeling changes. Ortho on board Pt does not want any surgical intervention Continue conservative management in the left elbow Continue weightbearing as tolerated. Follow up with ortho outpatient as needed Continue pain control with Tylenol and lidocaine cream prn Hypertension BP has been fluctuated Continue monitor BP closely Hypomagnesium Mg 1.8 today Continue monitor electrolytes DM type 2 Most recent HA1c 6.7 on April 2020 Not on any DM med Continue monitor BS DVT px on heparin subq Code Status full code Disposition Discharge to [facility] today Pt on doxy. Call PCP and not sure why she is on it. Spoke to staff at [facility] to continue doxy until confirm with PCP Admission and Anticipated Discharge Date Admission Date: June 27, 2020 Subjective Pt was seen and examined Lying in bed with no distress Pt said that she feels much better She said that she walked with therapy today in the hallway She said that her strength is much better Spoke to her daughter in law and provided with updates today Denies any chest pain, palpitation, dizziness and SOB Physical Exam Physical Exam: General- No acute distress Head- atraumatic Eyes- PERRL, EOMI, ENT- oropharynx clear Neck- supple, no JVD Lungs- clear to auscultation Heart- regular rhythm; no murmur Abdomen- normal bowel sounds, soft, nontender Extremities- no calf tenderness, deformity in both hands, swelling/tenderness in elbow Neuro- alert, oriented x 3; PERRL, EOMI; no facial palsy; no dysarthria Skin- warm & dry Results & Data Results & Data ([facility]) Vital Signs (Past 12 Hours) Vital Signs Temp Pulse Pulse Resp BP Pulse Ox 06/30/20 17:21 36.7 C 79 20 166/73 H 94 06/30/20 15:56 36.7 C 79 20 166/73 H 06/30/20 15:41 70 06/30/20 12:09 36.9 C 67 16 143/87 H 94 06/30/20 07:30 70 06/30/20 07:18 36.8 C 73 16 154/67 H 97
[2020-06-30] MEDS ORDERED: lisinopriL 20 MG TAB PO SCH (18:30)
--- NOTE | 2020-07-03 00:36 | Discharge Summary ---
Date of Service June 30, 2020 Admission HPI Per Admitting Provider History obtained from patient Cindy and records. Medical history significant for rheumatoid arthritis, hypertension, hyperlipidemia, hypothyroidism, hx TIA/PVD as per records, DM2 diet-controlled. Patient seen at [facility] ER last November, for right elbow injury secondary to fall. X-ray showed chronic severe deformity of right elbow characterized by destruction of normal bony articular joint surfaces, Calcifications in the soft tissues and joint space. No acute pathology found. Conservative management by patient's orthopedic doctor from [place]. 3 months ago patient noted pain and swelling on the left elbow. Outpatient x-ray showed left elbow dislocation and olecranon process fracture, severe multifocal arthritis. Marked osteoporosis. Temporary casting ordered by process improvement specialist as per patient. Patient underwent bilateral steroid injections on both elbows during [facility] patient intake representative visit 3 months ago. Increased trouble with performing activities of daily living with elbow problems the last few months. Some trouble with ambulation as well. Periodic home health visits. Worsening left elbow pain/swelling the last 3 weeks without fever, chills. Patient went to go to the bathroom after dinner last night. Had trouble getting up from the commode. Patient denies chest pain, shortness of breath, cough, abdominal pain, diarrhea, black/bloody stools, headache, syncope symptoms. At some point overnight, patient dropped a water bottle on her right foot leading to a mildly painful swelling. Neighbors eventually heard patient yelling from her home. Patient brought to the ER for evaluation. Medical History as above Surgical History : Knee surgeries, appendectomy, ovarian cyst removal, cataract surgery, elbow nodule removal Family History : Rheumatoid arthritis, diabetes, heart disease, stroke Personal/Social history : Non-smoker, no EtOH intake, retired bank employee, lives by herself Admission Exam Per Admitting Provider GENERAL: Comfortable, pleasant, underweight, frail looking, no respiratory distress SKIN: Pallor, warm HEENT: Pale palpebral conjunctivae, R eye closed from chronic dry eye condition as per patient, dry buccal mucosa NECK : Supple, no tenderness CHEST : CTA, no tenderness HEART : RRR, no obvious murmurs ABDOMEN: Soft, nontender EXTREMITIES : Chronic contractures upper extremities, bilateral elbow swelling L>R with minimal tenderness, minimal right foot swelling with tenderness NEUROLOGIC : Coherent, no facial asymmetry, no other gross focality Principal Diagnosis Rhabdomyolysis Elevated troponin Weakness Anemia Elevated Liver enzymes Rheumatoid Arthritis Left elbow tenderness Right foot tenderness/swelling Hypertension Hypomagnesium DM type 2 Discharge Exam General- No acute distress Head- atraumatic Eyes- PERRL, EOMI, ENT- oropharynx clear Neck- supple, no JVD Lungs- clear to auscultation Heart- regular rhythm; no murmur Abdomen- normal bowel sounds, soft, nontender Extremities- no calf tenderness, deformity in both hands, swelling/tenderness in elbow Neuro- alert, oriented x 3; PERRL, EOMI; no facial palsy; no dysarthria Skin- warm & dry Discharge Data Allergies Allergy/AdvReac Type Severity Reaction Status Date / Time ezetimibe Allergy Intermediate HIVES Verified 06/27/20 19:21 levothyroxine Allergy Intermediate HIVES Verified 06/27/20 19:53 rofecoxib Allergy Unknown UNKN Verified 06/27/20 19:21 esomeprazole AdvReac Intermediate DIARRHE Verified 06/27/20 19:21 tramadol AdvReac Intermediate NAUSEA & Verified 06/27/20 19:21 VOMITING Consultations 06/27/20 22:17 ED Decision to Admit Stat 06/28/20 01:25 Consult Case Management - Discharge Planning Routine Consult Orthopedic Surgery Routine 06/28/20 07:47 Consult Cardiology Routine Ordered Studies XR chest 1V portable HISTORY: 85 years-old Female weakness acute weakness status post fall COMPARISON: Acute abdominal series radiographs 06/11/2014 TECHNIQUE: Supine AP view of the chest FINDINGS: Cardiomegaly. Calcified plaque of the thoracic aortic arch. Pleural thickening of the lung apices. No pneumothorax, pleural effusion, overt pulmonary edema or airspace consolidation typical for pneumonia. Skin folds project over the right lung base. Degenerative changes of the shoulders and spine. Findings suggest prior resection of the distal left clavicle. IMPRESSION: No acute process. ACT 112: Negative or not required by law. The above report was generated using voice recognition software. It may contain grammatical, syntax or spelling errors. Electronically signed by: Branden Morton M.D. 06/27/2020 7:17 PM Dictated: 06/27/201915 Transcribed: 06/27/201915 XR foot RT min 3V routine HISTORY: 85 years-old Female trauma, contusion acute posttraumatic right foot pain COMPARISON: None TECHNIQUE: 3 views of the right foot FINDINGS: Demineralized appearance of the bones with severe multifocal osteoarthritis. Chronic appearing dislocation with remodeling changes throughout the metatarsal- phalangeal joints. Linear lucency involves the medial cortex of the first cuneiform. There is mild soft tissue swelling throughout the forefoot. No acute displaced fracture or dislocation. Chronic erosive/resorptive changes are noted involving the distal fifth metatarsal. Pes planus deformity with midfoot collapse and subtalar degenerative bony fusion. IMPRESSION: 1. Demineralized appearance of the bones with chronic findings as above. 2. Mild forefoot soft tissue swelling with linear longitudinal lucency involving the medial cortex of the first cuneiform. Correlate with point tenderness to exclude acute nondisplaced fracture. ACT 112: Negative or not required by law. The above report was generated using voice recognition software. It may contain grammatical, syntax or spelling errors. Electronically signed by: Branden Morton M.D. 06/27/2020 7:23 PM Dictated: 06/27/201920 Transcribed: 06/27/201920 XR elbow LT min 3V routine HISTORY: 85 years-old Female deformity acute left elbow pain status post fall COMPARISON: None TECHNIQUE: 3 views of the left elbow FINDINGS: Demineralized appearance of the bones. Periarticular ossifications are present. There is dislocation of the radiocapitellar and trochlear olecranon articulations with chronic remodeling changes. There is a 4.4 cm corticated ossification along the posterior margin of the elbow suggests remote fracture fragment. No definitive acute fracture identified. Soft tissue prominence from the elbow is suggestive of a joint effusion. IMPRESSION: Grossly abnormal appearance of the elbow is suggestive of chronic dislocation/erosion with associated remodeling changes. A neuropathic joint could cause this appearance. No definitive acute fracture identified, however evaluation is limited secondary to positioning and bone demineralization. ACT 112: Negative or not required by law. The above report was generated using voice recognition software. It may contain grammatical, syntax or spelling errors. Electronically signed by: Branden Morton M.D. 06/27/2020 7:21 PM Hospital Course (1) Rhabdomyolysis: Secondary to immobility due to weakness was unable to get off the toilet and has been there for over 24 hours. CK level on admission 1321 Received IVF, CK dropped to 577 -->197 today Resolved Elevated troponin Related to Rhabdomyolysis Troponin on admission 2.9, then trending down to 1.9 EKG showed no acute ischemic changes ECHO showed no LV wall motion abnormality with EF 55-to 60 % asymptomatic Ok from cardiology standpoint to DC telemetry or discharge Stable Weakness Continue PT/OT fall precaution Not safe to live alone Will need 24hr supervision Agreed to go to inpatient rehab or SNF Will discharge to [facility] today COVID 19 negative today Anemia Possible related to anemia of chronic disease Hgb on admission 10, then dropped to 8.3 (possible due to dilution from IV fluid) Stool FOBT negative Hgb today 8.5 Check cbc in 1 week to monitor hemoglobin Elevated Liver enzymes AST 85 on admission, then 67 -->47---> 39 today Will monitor Liver enzymes Rheumatoid Arthritis Left elbow tenderness Right foot tenderness/swelling History L elbow dislocation/olecranon process fracture (03/2020) status post conservative management CXR showed abnormal appearance of the elbow is suggestive of chronic dislocation/erosion with associated remodeling changes. Ortho on board Pt does not want any surgical intervention Continue conservative management in the left elbow Continue weightbearing as tolerated. Follow up with ortho outpatient as needed Continue pain control with Tylenol and lidocaine cream prn Hypertension BP has been fluctuated Continue monitor BP closely Hypomagnesium Mg 1.8 today Continue monitor electrolytes DM type 2 Most recent HA1c 6.7 on April 2020 Not on any DM med Continue monitor BS DVT px on heparin subq Code Status full code Disposition Discharge to [facility] today Pt on doxy. Call PCP and not sure why she is on it. [facility] to continue doxy until confirm with PCP Total Time Total Time Spent Total Time Spent (In Minutes): 35 minutes Total Time Includes: Examination of the Patient, Discharge Planning, Medication Reconciliation, Communication With Other Providers and Other Discharge Plan Discharge Items Patient Disposition: Transfer Long-Term Fac Reason For Visit: RHABODMYOLYSIS Discharge Diagnosis: Rhabdomyolysis Elevated troponin Weakness Anemia Elevated Liver enzymes Rheumatoid Arthritis Left elbow tenderness Right foot tenderness/swelling Hypertension Hypomagnesium DM type 2 Condition on Discharge: Fair Activity: Resume your previous activity Lifting: Gradually increase as tolerated Non-emergency contact: Primary Care Provider Call non-emergency contact if: you have any medication questions Follow-up/Referrals: PCP,NO [Primary Care Provider] - Diet: Heart Healthy Addtl Attending Provider Instructions: Follow up with your primary care provider once discharge from [facility] Continue physical and occupational therapy Continue weightbearing as tolerated. Follow up with orthopedic Dr. Zavala outpatient as needed Continue monitor your blood pressure (if blood pressure starts to elevate, your provider can titrate your blood medications) Check CBC in 1 week to monitor your hemoglobin Fall precaution Pending Studies at Discharge: No Stand-Alone Forms: My [facility] Skilled Items Patient informed of condition?: Yes DNR: No Discharge Level of Care: Skilled Communicable Disease: No Discharge Prognosis: Stable Lines: None Urinary Catheter: No Medications and DC Order Prescriptions: New lidocaine [Anecream] 4 % Cream 1 applic EXT Q6H Qty: 30 RF: 0 atenolol 25 mg Tablet 12.5 mg PO BID 30 Days Qty: 30 RF: 0 Continued atorvastatin [Lipitor] 10 mg tablet 10 mg PO DAILY RF: 0 lisinopril [Prinivil] 20 mg tablet 20 mg PO DAILY RF: 0 cyanocobalamin (vitamin B-12) 1,000 mcg Tablet 1,000 mcg PO DAILY RF: 0 aspirin 81 mg Tablet,Delayed Release (Dr/Ec) 81 mg PO DAILY RF: 0 levothyroxine [Synthroid] 75 mcg tablet 75 mcg PO DAILY RF: 0 lorazepam 0.5 mg tablet 0.5 mg PO BID PRN (Reason: Anxiety) RF: 0 calcium carbonate-vitamin D3 [Os-Gabriel 500 + D3] 500 mg(1,250mg) -200 unit Tablet 1 tab PO BID RF: 0 carboxymethylcellulose sodium 1 % Drops, Liquid Gel 2 drp OPHTHALMIC (EYE) BID PRN (Reason: ..) RF: 0 doxycycline hyclate 20 mg tablet 20 mg PO DAILY RF: 0 Changed acetaminophen 650 mg Tablet Extended Release 650 mg PO Q6H PRN (Reason: pain) Qty: 0 RF: 0 Discontinued atenolol [Tenormin] 50 mg tablet 50 mg PO BID RF: 0 doxycycline hyclate 20 mg tablet 20 mg PO DAILY RF: 0 Discharge Orders: Discharge Order (Routine); Ordered 06/30/20 Ordered By: Nidhi Corona Admission Data Admit Date/Time: 06/27/20 23:52 Attending Provider: Nidhi Corona Admit Provider: Obed Joaquin Primary Care Provider: PCP,NO Other Providers: Obed Joaquin ; Jet Escobar ; Sivakumar Zavala ; Michael Giraldo ; Betty Swift ; Octavio Hilton ; Eveline Craig ; Josué Schafer ; Wm Bryant ; Víctor Bunn ; Wm Olson ; Reece Dunn. ; Víctor Carroll ; Tommy Weinstein ; Foreign Singh ; Kendrick Gibson ; Beltran Santos ; Sea Guzman ; Eveline Hu ; Kennedy Nelson ; Robin Root ; Domi Corbett ; Hamilton Palma ; Chichi Porras ; Brandon Varner ; Celeste Siegel Other Interventions: Discharge Summary Assessment (RN) Last Done: 06/30/20 17:21
== END 2020-06-30 19:00 | DRG 558 ==
LOC: ED 18:14 → 2W 23:52

== ENCOUNTER 2020-08-23 04:14 | Inpatient (IN) ==
[2020-08-23] MEDS ORDERED: MoRPHine SULFATE 2 MG/ML CARP IV STA (04:28)
[2020-08-23] MEDS ORDERED: ACETAMINOPHEN 1,000 MG/100 ML VIAL IV STA (04:28)
--- NOTE | 2020-08-23 04:33 | Emergency Department Note ---
History of Present Illness General Chief complaint: Fall Stated complaint: FALL/RT. ARM PAIN Time Seen by Provider: 08/23/20 04:15 Source: patient Mode of arrival: EMS Limitations: no limitations History of Present Illness Provider complaint: Fall, right shoulder pain Onset (ago): hour(s) Location: upper extremity Radiation: non-radiation Severity: moderate Pain Consistency: + constant Quality: + constant Relieved By: + none Exacerbated By: + movement Associated symptoms: + denies other symptoms Treatments prior to arrival: none This is an 85-year-old female brought in by EMS from home after a ground-level fall. Patient states she got up from bed to make her way to the bathroom when she became off balance and fell. Patient pressed her life alert button and EMS was summoned, however there was a delay in them getting into the house as the doors were locked and patient could not get up initially. Patient states she fell between her bed and the dresser onto a carpeted surface. States she did not hit her head and did not lose consciousness. Patient complains of pain at the right shoulder. Denies any additional pain to the right upper extremity, patient is right-hand dominant. Patient denies any new or worsening neck or back pain, denies numbness or tingling, denies dizziness, chest pain, trouble breathing. Patient denies any hip pain or lower extremity injury. Patient denies any use of antiplatelet or anticoagulation therapy. Patient does have a lot of chronic pain secondary to her rheumatoid arthritis. Patient does follow with an arthritis specialist. Review of EMR, patient was admitted following a fall the end of June, was ultimately transferred to inpatient rehab, and subsequently discharged home Pt seen during a time of high acuity and national emergency pandemic while wearing PPE. Home Medications Medication Instructions Recorded Confirmed Type atorvastatin [Lipitor] 10 mg PO QAM 06/27/20 08/23/20 History cyanocobalamin (vitamin B-12) 1,000 mcg PO QAM 06/27/20 08/23/20 History lisinopril [Prinivil] 20 mg PO QAM 06/27/20 08/23/20 History acetaminophen 650 mg PO Q6H PRN #0 tab 06/30/20 08/23/20 Rx amlodipine 5 mg PO QAM 08/23/20 08/23/20 History aspirin 81 mg PO QAM 08/23/20 08/23/20 History atenolol 50 mg PO QAM 08/23/20 08/23/20 History calcium carbonate-vitamin D3 1 tab PO HS 08/23/20 08/23/20 History [Oyster Shell Calcium-Vit D3] ferrous sulfate 325 mg PO HS 08/23/20 08/23/20 History levothyroxine [Synthroid] 88 mcg PO DAILYBB 08/23/20 08/23/20 History mv,Ca,min-folic acid-vit K1 1 tab PO QAM 08/23/20 08/23/20 History [One-A-Day Women's 50 Plus] sennosides-docusate sodium [Senna 2 tab-cap PO QAM 08/23/20 08/23/20 History Plus] Allergies Allergy/AdvReac Type Severity Reaction Status Date / Time ezetimibe Allergy Intermediate HIVES Verified 08/23/20 05:02 levothyroxine Allergy Intermediate HIVES Verified 08/23/20 05:02 rofecoxib Allergy Unknown UNKN Verified 08/23/20 05:02 esomeprazole AdvReac Intermediate DIARRHE Verified 08/23/20 05:02 tramadol AdvReac Intermediate NAUSEA & Verified 08/23/20 05:02 VOMITING Past Med/Surg History Medical History (Updated 08/24/20 @ 00:17 by Clotilde Quevedo DO) Elevated troponin Hypertension Hypomagnesemia Surgical History S/P appendectomy Social History Smoking Status: Never smoker Second Hand Exposure: No; Do You Dip or Chew Tobacco: No; Tobacco Cessation Education Requested by Patient: No Hx Alcohol Use: No Hx Substance Use: No Preferred Language: Estonian Communication Ability: Effective Electric Wheelchair Repairer Required: No Beliefs That Will Affect Care: None Current Living Situation: Alone Other Information That Helps Us Care for You: No Feels Safe at Home: Yes Safety Concerns: Feels Safe At This Time Assistive Devices: Denture - Upper and Denture - Lower Review of Systems See HPI for pertinent positives & negatives. and A total of 10 systems reviewed and were otherwise negative Physical Exam Vital Signs Vital Signs - 24 hr 08/23/20 04:26 08/23/20 05:32 08/23/20 06:02 Temperature 36.6 C Temperature Source Oral Pulse Rate 95 H 72 78 Pulse Rhythm Regular Pulse Strength Normal Respiratory Rate 27 H 27 H 19 Respiratory Effort / Characteristics Non-Labored Spontaneous Respiratory Depth Normal Respiratory Pattern Regular Blood Pressure 200/88 H 168/74 H 155/77 H Blood Pressure Mean 125 94 108 Blood Pressure Position Lying Pulse Oximetry 100 99 Oxygen Delivery Method Room Air Room Air Sepsis Recent Fever Within 48 Hours No Sepsis New/Unexplained Change in Mental Status No Sepsis Action Taken by Nursing No Action Required GENERAL: alert, uncomfortable appearing, well nourished, moderate distress, non- toxic HEAD: nc/at, no christine sign, no raccoon eyes EYE EXAM: normal conjunctiva, PERRL and EOM's grossly intact, no hyphema or subconjunctival hemorrhage OROPHARYNX: no exudate, no erythema, lips, buccal mucosa, and tongue normal and mucous membranes are moist, no evidence of dental trauma NECK: supple, no nuchal rigidity, no adenopathy, non-tender LUNGS: Clear to auscultation. Normal chest wall mechanics, no w/r/r CHEST WALL: No pain with palpation of the chest wall or ribs, no crepitus, no ecchymosis HEART: no murmurs, S1 normal and S2 normal ABDOMEN: abdomen soft, non-tender, normo-active bowel sounds, no masses, no rebound or guarding. No evidence of trauma. PELVIS: Stable to compression, no pain with palpation BACK: Back is symmetrical on inspection and there is no deformity, no midline tenderness, no CVA tenderness. SKIN: no rashes and no bruising UPPER EXTREMITIES: upper extremities are grossly normal. Chronic appearing deformities noted to bilateral hands, obvious edema and tenderness with palpation over the proximal humerus, chronic appearing edema noted at the right elbow with decreased range of motion which patient states is chronic also, FROM, nml pulses b/l. LOWER EXTREMITIES: No pitting edema. No deformities or joint effusions. No evidence of trauma. FROM, nml pulses b/l. NEURO EXAM: Normal sensorium, cranial nerves II-XII grossly intact, normal speech, no gross weakness of arms, no gross weakness of legs. Gross sensation intact. Course Course 0545: Pt updated on results. Pain is improved. Pt does live alone, has had help since her last admission but not 24/04. 0552: Discussed with briefcase sewer to eval for possible inpatient rehab placement. Pt's insurance prohibits direct transfer to inpatient rehab. Will discuss admission with her for ortho eval, PT/OT. 06: Discussed with Dr. Trivedi. Administered Medications Acetaminophen (Acetaminophen 325 Mg Tab) 650 mg PO Q4H PRN PRN Reason: Pain or Fever Stop: 09/22/20 08:03 Last Admin: 08/23/20 19:22 Dose: 650 mg Documented by: [id number] Admin: 08/23/20 12:09 Dose: 650 mg Documented by: [id number] Aspirin (Aspirin 81 Mg Ectab) 81 mg PO QAM MADELINE Stop: 09/22/20 08:59 Last Admin: 08/23/20 09:43 Dose: 81 mg Documented by: [id number] Cyanocobalamin (Cyanocobalamin 500 Mcg Tablet (Vitamin B-12)) 1,000 mcg PO QAM MADELINE Stop: 09/22/20 08:59 Last Admin: 08/23/20 09:43 Dose: 1,000 mcg Documented by: [id number] Ferrous Sulfate (Ferrous Sulfate 325 Mg Tab) 325 mg PO HS MADELINE Stop: 09/22/20 20:59 Last Admin: 08/23/20 21:49 Dose: Not Given Documented by: [id number] Heparin Sodium (Porcine) (Heparin Sod 5,000 Unit/0.5 Ml Vial) 5,000 units SQ Q8 MADELINE Stop: 09/22/20 13:59 Last Admin: 08/23/20 21:49 Dose: 5,000 units Documented by: [id number] Admin: 08/23/20 13:38 Dose: 5,000 units Documented by: [id number] Hydromorphone HCl (Hydromorphone Inj 0.5 Mg/0.5 Ml Syr) 0.25 mg IV Q3H PRN PRN Reason: Pain Stop: 09/06/20 08:03 Last Admin: 08/23/20 19:45 Dose: 0.25 mg Documented by: [id number] Admin: 08/23/20 16:01 Dose: 0.25 mg Documented by: [id number] Potassium Chloride 40 meq/ (Sodium Chloride) 1,020 mls @ 50 mls/hr IV .[id number] ONE Stop: 08/24/20 06:23 Last Admin: 08/23/20 10:40 Dose: 50 mls/hr Documented by: [id number] Insulin Aspart (Insulin Aspart 100 Units/Ml 3 Ml Pen) 0 units SC ACHS [facility] Stop: 09/22/20 09:24 Last Admin: 08/23/20 21:27 Dose: Not Given Documented by: [id number] Cosigned by: [id number] Admin: 08/23/20 17:36 Dose: Not Given Documented by: [id number] Cosigned by: [id number] Admin: 08/23/20 12:16 Dose: Not Given Documented by: [id number] Cosigned by: [id number] Admin: 08/23/20 11:14 Dose: Not Given Documented by: [id number] Cosigned by: [id number] Levothyroxine Sodium (Levothyroxine Sodium 88 Mcg Tablet) [facility] Stop: 09/23/20 06:29 Last Admin: 08/23/20 10:42 Dose: 88 mcg Documented by: [id number] Lisinopril (Lisinopril 20 Mg Tab) 20 mg PO [facility] Stop: 09/22/20 09:59 Last Admin: 08/23/20 10:42 Dose: 20 mg Documented by: [id number] Multivitamins (Multivitamin Tab) 1 tab PO QAM [facility] Stop: 09/22/20 08:59 Last Admin: 08/23/20 09:43 Dose: 1 tab Documented by: [id number] Multivitamins/Minerals (Calcium 600mg + Vit D 400 Iu Tab) 1 tab PO HS [facility] Stop: 09/22/20 20:59 Last Admin: 08/23/20 21:49 Dose: Not Given Documented by: [id number] Senna/Docusate Sodium (Docusate Sodium/Senna 50/8.6mg Tab) 2 tab PO QAM [facility] Stop: 09/22/20 08:59 Last Admin: 08/23/20 09:43 Dose: 2 tab Documented by: [id number] Discontinued Medications Amlodipine Besylate (Amlodipine Besylate 5 Mg Tab) 5 mg PO NOW STA Stop: 08/23/20 06:27 Last Admin: 08/23/20 07:13 Dose: 5 mg Documented by: [id number] Atenolol (Atenolol 50 Mg Tablet) 50 mg PO NOW STA Stop: 08/23/20 06:27 Last Admin: 08/23/20 07:13 Dose: 50 mg Documented by: [id number] Hydromorphone HCl (Hydromorphone Inj 0.5 Mg/0.5 Ml Syr) 0.25 mg IV NOW STA Stop: 08/23/20 07:06 Last Admin: 08/23/20 09:44 Dose: Not Given Documented by: [id number] Acetaminophen (Ofirmev) 1,000 mg in 100 mls @ 400 mls/hr IV NOW STA Stop: 08/23/20 04:42 Last Infusion: 08/23/20 05:28 Dose: 0 mls/hr Documented by: [id number] Admin: 08/23/20 05:10 Dose: 400 mls/hr Documented by: [id number] Sodium Chloride (Nss 1000ml) 1,000 mls @ 50 mls/hr IV .Q20H ONE Stop: 08/24/20 04:59 Last Infusion: 08/23/20 10:40 Dose: 0 mls/hr Documented by: [id number] Admin: 08/23/20 08:30 Dose: 50 mls/hr Documented by: [id number] Morphine Sulfate (Morphine Sulfate 2 Mg/Ml Carp) 2 mg IV NOW STA Stop: 08/23/20 04:29 Last Admin: 08/23/20 05:09 Dose: 2 mg Documented by: [id number] Potassium Chloride (Potassium Chloride Crtab 20 Meq Tabcr) 40 meq PO NOW ONE Stop: 08/23/20 10:01 Last Admin: 08/23/20 12:10 Dose: 40 meq Documented by: [id number] Medical Decision Making Differential Diagnosis Fracture, subluxation, dislocation, contusion, ligamentous injury, neurovascular, compartment syndrome, rhabdomyolysis, as well as other pathologies. Medical Records Attestation: I reviewed the patient's medical records. Home Medications Current Medication List: was personally reviewed by me Laboratory Data Attestation: I reviewed the patient's lab results. Result diagrams: 08/23/20 05:00 08/23/20 07:30 Lab Results 08/23/20 08/23/20 08/23/20 Range/Units 05:00 05:00 05:09 WBC 5.65 (4.8-10.8) K/uL RBC 4.29 (4.2-5.4) M/uL Hgb 13.1 (12.0-16.0) g/dL POC Hgb 13.6 (12.0-16.0) g/dl Hct 39.6 (37-47) % POC Hct 40 (37-47) % MCV 92.3 (80-100) fL MCH 30.5 (25-34) pg MCHC 33.1 (32-36) g/dL RDW Std Deviation 58.2 H (36.4-46.3) fL RDW Coeff of Michael 17.5 H (11.5-14.5) % Plt Count 296 (130-400) K/uL MPV 10.3 (7.4-10.4) fL Immature Gran % (Auto) 0.7 % Neut % (Auto) 77.5 % Lymph % (Auto) 13.3 % [place] % (Auto) 8.5 % Eos % (Auto) 0.0 % Baso % (Auto) 0.0 % Neut # (Auto) 4.38 (1.4-6.5) K/uL Lymph # (Auto) 0.75 L (1.2-3.4) K/uL [place] # (Auto) 0.48 (0.11-0.59) K/uL Eos # (Auto) 0.00 (0-0.5) K/uL Baso # (Auto) 0.00 (0-0.2) K/uL Immature Gran # (Auto) 0.04 H (0.00-0.02) K/uL POC Sodium 138 (135-144) mmol/L Sodium (136-145) mmol/L POC Potassium 3.3 (3.3-5.0) mmol/L Potassium (3.5-5.1) mmol/L POC Chloride 107 (101-112) mmol/L Chloride (98-107) mmol/L Carbon Dioxide (21-32) mmol/L POC Total CO2 19 L (24-31) mmol/L Anion Gap (3-11) POC Anion Gap 16.0 (16-25) mmol/L POC BUN 20 H (7-18) mg/dl BUN (7-18) mg/dl Creatinine (0.6-1.2) mg/dl POC Creatinine 0.4 L (0.6-1.3) mg/dl Est Cr Clr Drug Dosing ml/min Est GFR ( Amer) Est GFR (Non-Af Amer) BUN/Creatinine Ratio (10-20) Glucose (70-99) mg/dl POC Glucose (other) 106 H (70-99) mg/dl Calcium (8.5-10.1) mg/dl POC Ioniz Calcium Papa 1.14 (1.12-1.32) mmol/l Magnesium (1.8-2.4) mg/dl Total Bilirubin (0.2-1) mg/dl AST (15-37) U/L ALT (12-78) U/L Alkaline Phosphatase (45-117) U/L Total Creatine Kinase Cancelled Total Protein (6.4-8.2) gm/dl Albumin (3.4-5.0) gm/dl Globulin (2.5-4.0) gm/dl Albumin/Globulin Ratio (0.9-2) SARS-CoV-2 Ag (Rapid) (Negative) 08/23/20 08/23/20 08/23/20 Range/Units 06:00 06:00 06:39 WBC (4.8-10.8) K/uL RBC (4.2-5.4) M/uL Hgb (12.0-16.0) g/dL POC Hgb (12.0-16.0) g/dl Hct (37-47) % POC Hct (37-47) % MCV (80-100) fL MCH (25-34) pg MCHC (32-36) g/dL RDW Std Deviation (36.4-46.3) fL RDW Coeff of Michael (11.5-14.5) % Plt Count (130-400) K/uL MPV (7.4-10.4) fL Immature Gran % (Auto) % Neut % (Auto) % Lymph % (Auto) % [place] % (Auto) % Eos % (Auto) % Baso % (Auto) % Neut # (Auto) (1.4-6.5) K/uL Lymph # (Auto) (1.2-3.4) K/uL [place] # (Auto) (0.11-0.59) K/uL Eos # (Auto) (0-0.5) K/uL Baso # (Auto) (0-0.2) K/uL Immature Gran # (Auto) (0.00-0.02) K/uL POC Sodium (135-144) mmol/L Sodium 138 (136-145) mmol/L POC Potassium (3.3-5.0) mmol/L Potassium (3.5-5.1) mmol/L POC Chloride (101-112) mmol/L Chloride 110 H (98-107) mmol/L Carbon Dioxide 23 (21-32) mmol/L POC Total CO2 (24-31) mmol/L Anion Gap 5.0 (3-11) POC Anion Gap (16-25) mmol/L POC BUN (7-18) mg/dl BUN 17 (7-18) mg/dl Creatinine 0.45 L (0.6-1.2) mg/dl POC Creatinine (0.6-1.3) mg/dl Est Cr Clr Drug Dosing 47.8 ml/min Est GFR ( Amer) 104.4 Est GFR (Non-Af Amer) 90.1 BUN/Creatinine Ratio 38.8 H (10-20) Glucose 98 (70-99) mg/dl POC Glucose (other) (70-99) mg/dl Calcium 8.2 L (8.5-10.1) mg/dl POC Ioniz Calcium Papa (1.12-1.32) mmol/l Magnesium (1.8-2.4) mg/dl Total Bilirubin 0.7 (0.2-1) mg/dl AST (15-37) U/L ALT 19 (12-78) U/L Alkaline Phosphatase 78 (45-117) U/L Total Creatine Kinase Cancelled Total Protein 6.3 L (6.4-8.2) gm/dl Albumin 3.2 L (3.4-5.0) gm/dl Globulin 3.1 (2.5-4.0) gm/dl Albumin/Globulin Ratio 1.0 (0.9-2) SARS-CoV-2 Ag (Rapid) Negative (Negative) Imaging Data My Impression: X-ray: I interpreted the following studies. Chest: A single view study of the chest was reviewed and was negative for cardiomegaly, focal infiltrate, effusion, pulmonary edema, or wide mediastinum. No obvious pneumothorax or rib fracture. Artifactual line noted in the right lung field. Right shoulder: 2 views of the right shoulder were reviewed and interpreted by me, a proximal humerus fracture with mild displacement was noted. No dislocation. Right elbow: 3 views of the right elbow were reviewed and interpreted by me, chronic appearing fractures/deformities noted, patient states this is known and chronic Pelvis: AP view of the pelvis was reviewed and interpreted by me, no obvious fracture dislocation Blood Pressure Blood Pressure Findings: Elevated blood pressure Blood Pressure Disposition: further management by hospitalist NED Roberson This is an 85-year-old female from home where she lives alone who sustained a fall. Patient's only complaint was that of pain at the right shoulder. Patient was oriented and able to provide a history. Patient does use aspirin, however no other anticoagulation. Patient found to have a proximal humerus fracture on the right. Patient is right-hand dominant. Patient does have other chronic fracture deformities of the right elbow. No other evidence of trauma and I have a low suspicion for any additional occult traumatic injury. I discussed with case management options for increased help at home given patient lives alone versus inpatient rehab. After additional investigation and discussion with the patient, they state there is no way to arrange 24-hour care for the patient at home at this time and her insurance prohibits direct referral and placement in inpatient rehab. In light of an unsafe discharge plan, case was discussed with hospitalist. Likely patient would benefit from orthopedic evaluation as well as PT/OT consultation while here. I do not suspect other occult infectious etiology, or syncopal event. Patient states she has had prior falls. An order was placed for continuous cardiac monitoring. The monitor shows a rate of _76_ with _normal sinus_ rhythm. Impression & Plan Acute pain of right shoulder, Fracture, humerus closed, Fall, Rheumatoid arthritis, Hypertension Discharge Plan Visit Data Chief Complaint: Fall Stated Complaint: FALL/RT. ARM PAIN ED Provider: Clotilde Quevedo Discharge Problem: Acute pain of right shoulder, Fracture, humerus closed, Fall, Rheumatoid arthritis, Hypertension Patient Disposition: Admitted As Inpatient Discharge Instructions Interventions: ED Discharge Assessment Last Done: 08/23/20 07:30 Discharge Problem: Fracture, humerus closed Qualifiers: Encounter type: initial encounter Humerus Location: proximal Fracture morphology: unspecified fracture morphology Laterality: right Qualified Code(s): S42.201A - Unspecified fracture of upper end of right humerus, initial encounter for closed fracture Fall Qualifiers: Encounter type: initial encounter Qualified Code(s): W19.XXXA - Unspecified fall, initial encounter Rheumatoid arthritis Qualifiers: Rheumatoid arthritis location: multiple sites Rheumatoid factor presence: unspecified presence Qualified Code(s): M06.9 - Rheumatoid arthritis, unspecified Hypertension Qualifiers: Hypertension type: essential hypertension Qualified Code(s): I10 - Essential (primary) hypertension
[2020-08-23 05:23] LABS: iSTAT Creatinine 0.4 mg/dl (0.6-1.3); iSTAT Hemoglobin 13.6 g/dl (12.0-16.0); iSTAT Ionized Calcium 1.14 mmol/l (1.12-1.32); iSTAT Potassium 3.3 mmol/L (3.3-5.0)
[2020-08-23] MEDS ORDERED: ATENOLOL 50 MG TABLET PO STA (06:26)
[2020-08-23] MEDS ORDERED: amLODIPine BESYLATE 5 MG TAB PO STA (06:26)
[2020-08-23 06:32] LABS: Hematocrit (blood only) 39.6 % (37-47); Hemoglobin 13.1 g/dL (12.0-16.0); Immature Granulocytes # (auto) 0.04 K/uL (0.00-0.02); Immature Granulocytes % (auto) 0.7 %; Lymphocytes # (auto) 0.75 K/uL (1.2-3.4); Lymphocytes % (auto) 13.3 %; Mean Corpuscular Hemoglobin 30.5 pg (25-34); Mean Corpuscular Hgb Conc 33.1 g/dL (32-36); Mean Corpuscular Volume 92.3 fL (80-100); Mean Platelet Volume 10.3 fL (7.4-10.4); Monocytes # (auto) 0.48 K/uL (0.11-0.59); Monocytes % (auto) 8.5 %; Neutrophils # (auto) 4.38 K/uL (1.4-6.5); Neutrophils % (auto) 77.5 %; Platelet Count 296 K/uL (130-400); RDW Coefficient of Variation 17.5 % (11.5-14.5); RDW Standard Deviation 58.2 fL (36.4-46.3); Red Blood Count 4.29 M/uL (4.2-5.4); White Blood Count 5.65 K/uL (4.8-10.8)
[2020-08-23] MEDS ORDERED: HYDROmorphone INJ 0.5 MG/0.5 ML SYR IV STA (07:05)
[2020-08-23] MEDS ORDERED: PROMETHAZINE HCL 6.25 MG in SODIUM CHLORIDE 0.9% 50 ML IV PRN (07:05)
--- NOTE | 2020-08-23 07:05 | History & Physical Report ---
Date of Service August 23, 2020 Assessment & Plan (1) Asymptomatic hypertensive urgency: Secondary to pain from R humeral fracture secondary to mechanical fall History recurrent falls secondary to ambulatory dysfunction/functional disability hyperlipidemia on statin Rx hypothyroidism, euthyroid as of recent TSH hx TIA/PVD as per records DM2, diet-controlled, well-controlled as of recent outpatient hemoglobin A1c of 6.07 April 2020 Malnutrition (low BMI) Medical telemetry Facilitate home BP meds [facility] consult RE right humeral fracture ISS BG goal [id number] Nutrition consult RE low BMI PT OT eval Social service RE discharge planning, likely placement given recurrent falls DVT prophylaxis. Heparin subcu Full code Patient requests that her granddaughter be updated of plan of care. Ms. Johana Bueno, contact #[phone]. Text document was generated using [employer] voice recognition software. It may contain grammatical or spelling errors. Kindly contact undersigned for clarification of any documentation item in question. History of Present Illness Chief Complaint: Fall, right shoulder pain Primary Care Provider: Dr. Ochoa History obtained from patient, family, and records. Medical history significant for rheumatoid arthritis, hypertension, hyperlipidemia, hypothyroidism, hx TIA/PVD as per records, DM2 diet-controlled, chronic anemia (last outpatient hemoglobin of 11 from July 2020). Last confinement June 2020 for rhabdomyolysis secondary to immobility at home. Patient discharged to [facility] for rehab. Patient discharged home with home health services last month. Early this morning patient got up from bed to make her way to the bathroom when she became off balance leading to a fall landing on her right side. Achy right shoulder pain. No head trauma, no headache, no syncope, no LOC. Patient denies chest pain, S OB. Patient able to activate her life alert button. Patient brought to the ER by EMS. Medical History as above Surgical History : Knee surgeries, appendectomy, ovarian cyst removal, cataract surgery, elbow nodule removal Family History : Rheumatoid arthritis, diabetes, heart disease, stroke Personal/Social history : Non-smoker, no EtOH intake, retired bank employee, lives by herself Allergies Allergy/AdvReac Type Severity Reaction Status Date / Time ezetimibe Allergy Intermediate HIVES Verified 08/23/20 05:02 levothyroxine Allergy Intermediate HIVES Verified 08/23/20 05:02 rofecoxib Allergy Unknown UNKN Verified 08/23/20 05:02 esomeprazole AdvReac Intermediate DIARRHE Verified 08/23/20 05:02 tramadol AdvReac Intermediate NAUSEA & Verified 08/23/20 05:02 VOMITING Home Medications Medication Instructions Recorded Confirmed Type atorvastatin [Lipitor] 10 mg PO QAM 06/27/20 08/23/20 History cyanocobalamin (vitamin B-12) 1,000 mcg PO QAM 06/27/20 08/23/20 History lisinopril [Prinivil] 20 mg PO QAM 06/27/20 08/23/20 History acetaminophen 650 mg PO Q6H PRN #0 tab 06/30/20 08/23/20 Rx amlodipine 5 mg PO QAM 08/23/20 08/23/20 History aspirin 81 mg PO QAM 08/23/20 08/23/20 History atenolol 50 mg PO QAM 08/23/20 08/23/20 History calcium carbonate-vitamin D3 1 tab PO HS 08/23/20 08/23/20 History [Oyster Shell Calcium-Vit D3] ferrous sulfate 325 mg PO HS 08/23/20 08/23/20 History levothyroxine [Synthroid] 88 mcg PO DAILYBB 08/23/20 08/23/20 History mv,Ca,min-folic acid-vit K1 1 tab PO QAM 08/23/20 08/23/20 History [One-A-Day Women's 50 Plus] sennosides-docusate sodium [Senna 2 tab-cap PO QAM 08/23/20 08/23/20 History Plus] Past Med/Surg History Medical History (Updated 08/23/20 @ 09:25 by Obed Joaquin MD) Elevated troponin Hypertension Hypomagnesemia Surgical History S/P appendectomy Social History Smoking Status: Never smoker Second Hand Exposure: No; Do You Dip or Chew Tobacco: No; Tobacco Cessation Education Requested by Patient: No Hx Alcohol Use: No Hx Substance Use: No Preferred Language: Maltese Communication Ability: Effective Water Technician Required: No Beliefs That Will Affect Care: None Current Living Situation: Alone Other Information That Helps Us Care for You: No Feels Safe at Home: Yes Safety Concerns: Feels Safe At This Time Assistive Devices: Brace/Splint/Immobilizer and Glasses Physical Exam Physical Exam: GENERAL: uncomfortable, pleasant, underweight, no respiratory distress SKIN: Pallor, warm HEENT: pale palpebral conjunctivae, R eye closed from chronic dry eye condition as per patient, dry buccal mucosa NECK : Supple, no tenderness CHEST : CTA, no tenderness HEART : RRR, no obvious murmurs ABDOMEN: Soft, nontender EXTREMITIES : Chronic contractures upper extremities, R shoulder tenderness, chronic right elbow deformity NEUROLOGIC : Coherent, no facial asymmetry, no other gross focality Results & Data Results & Data ([facility]) Vital Signs (Past 12 Hours) Vital Signs Temp Pulse Resp BP Pulse Ox 08/23/20 06:02 78 19 155/77 H 99 08/23/20 05:32 72 27 H 168/74 H 08/23/20 04:26 36.6 C 95 H 27 H 200/88 H 100 Laboratory Results Laboratory Results WBC 5.65 K/uL (4.8-10.8) 08/23/20 05:00 RBC 4.29 M/uL (4.2-5.4) 08/23/20 05:00 Hgb 13.1 g/dL (12.0-16.0) 08/23/20 05:00 POC Hgb 13.6 g/dl (12.0-16.0) 08/23/20 05:09 Hct 39.6 % (37-47) 08/23/20 05:00 POC Hct 40 % (37-47) 08/23/20 05:09 MCV 92.3 fL (80-100) 08/23/20 05:00 MCH 30.5 pg (25-34) 08/23/20 05:00 MCHC 33.1 g/dL (32-36) 08/23/20 05:00 RDW Std Deviation 58.2 fL (36.4-46.3) H 08/23/20 05:00 RDW Coeff of Michael 17.5 % (11.5-14.5) H 08/23/20 05:00 Plt Count 296 K/uL (130-400) 08/23/20 05:00 MPV 10.3 fL (7.4-10.4) 08/23/20 05:00 Immature Gran % (Auto) 0.7 % 08/23/20 05:00 Neut % (Auto) 77.5 % 08/23/20 05:00 Lymph % (Auto) 13.3 % 08/23/20 05:00 Mccormick % (Auto) 8.5 % 08/23/20 05:00 Eos % (Auto) 0.0 % 08/23/20 05:00 Baso % (Auto) 0.0 % 08/23/20 05:00 Neut # (Auto) 4.38 K/uL (1.4-6.5) 08/23/20 05:00 Lymph # (Auto) 0.75 K/uL (1.2-3.4) L 08/23/20 05:00 Mccormick # (Auto) 0.48 K/uL (0.11-0.59) 08/23/20 05:00 Eos # (Auto) 0.00 K/uL (0-0.5) 08/23/20 05:00 Baso # (Auto) 0.00 K/uL (0-0.2) 08/23/20 05:00 Immature Gran # (Auto) 0.04 K/uL (0.00-0.02) H 08/23/20 05:00 POC Sodium 138 mmol/L (135-144) 08/23/20 05:09 POC Potassium 3.3 mmol/L (3.3-5.0) 08/23/20 05:09 POC Chloride 107 mmol/L (101-112) 08/23/20 05:09 POC Total CO2 19 mmol/L (24-31) L 08/23/20 05:09 POC Anion Gap 16.0 mmol/L (16-25) 08/23/20 05:09 POC BUN 20 mg/dl (7-18) H 08/23/20 05:09 POC Creatinine 0.4 mg/dl (0.6-1.3) L 08/23/20 05:09 POC Glucose (other) 106 mg/dl (70-99) H 08/23/20 05:09 POC Ioniz Calcium Papa 1.14 mmol/l (1.12-1.32) 08/23/20 05:09 Total Creatine Kinase Cancelled 08/23/20 05:00 SARS-CoV-2 Ag (Rapid) Negative (Negative) 08/23/20 06:39 Diagnostic Findings Right shoulder x-ray as per my interpretation right humeral neck fracture Right elbow x-ray as per my interpretation chronic right elbow deformity Pelvis x-ray official read pending Chest as per my interpretation hyperinflation
[2020-08-23 07:17] LABS: Albumin Level 3.2 gm/dl (3.4-5.0); BUN Creatinine Ratio 38.8 (10-20); Bilirubin,Total 0.7 mg/dl (0.2-1); Calcium 8.2 mg/dl (8.5-10.1); Creatinine Clr Calc Pharmacy 47.8 ml/min; Est GFR (African American) 104.4; Est GFR (Non-African American) 90.1; Globulin 3.1 gm/dl (2.5-4.0); Total Protein 6.3 gm/dl (6.4-8.2)
[2020-08-23 08:33] LABS: Magnesium 1.6 mg/dl (1.8-2.4); Potassium 3.1 mmol/L (3.5-5.1)
--- NOTE | 2020-08-23 08:58 | XRay Report ---
XR elbow RT min 3V routine CLINICAL HISTORY: trauma. Right elbow pain. COMPARISON STUDY: None. FINDINGS: Marked deformity throughout the elbow with associated erosive change, multiple bony fragmen ts, and dislocation. This is age-indeterminate and could represent a chronic process. A superimposed acute fracture cannot be excluded. There is diffuse soft tissue swelling. IMPRESSION: Marked deformity throughout the elbow with associated erosive change, multiple bony frag ments, and dislocation. This is age-indeterminate and could represent a chronic process. A superimpos ed acute fracture cannot be excluded. ACT 112: Negative or not required by law. Electronically signed by: Eladio Angelo M.D. 08/23/2020 8:57 AM
--- NOTE | 2020-08-23 08:58 | XRay Report ---
XR chest 1V portable CLINICAL HISTORY: Chest pain status post trauma COMPARISON STUDY: 06/27/2020 FINDINGS: The heart is normal in size. Underlying emphysema is suspected. There is no failure. There is no focal pulmonary consolidation. A right hemithorax line shadow likely represents a skinfold. The re is acute proximal right humeral fracture.[ IMPRESSION: 1. Acute proximal right humeral fracture 2. No acute intrathoracic findings. ACT 112: Negative or not required by law. Electronically signed by: Vernon Valles M.D. 08/23/2020 8:57 AM
[2020-08-23] MEDS ORDERED: SODIUM CHLORIDE 0.9% 1000ML 1,000 ML IV ONE (09:00)
--- NOTE | 2020-08-23 09:08 | XRay Report ---
XR shoulder RT min 2V routine CLINICAL HISTORY: Right shoulder pain status post trauma COMPARISON: None. DISCUSSION: There is acute humeral neck fracture. The bones are osteopenic. There is no dislocation. There is radiographic evidence of chronic rotator cuff tear. There are old postsurgical changes invol ving the distal right clavicle. IMPRESSION: 1. Acute right humeral neck fracture. ACT 112: Negative or not required by law. Electronically signed by: Vernon Valles M.D. 08/23/2020 9:06 AM
--- NOTE | 2020-08-23 09:10 | XRay Report ---
XR pelvis 1-2V routine CLINICAL HISTORY: Pelvic pain status post trauma COMPARISON: None DISCUSSION: The bones are osteopenic. There are vascular calcifications. There is no SI joint diastas es. There is no symphysis diastases. No acute fractures or dislocations are visualized. IMPRESSION: No acute fractures identified. ACT 112: Negative or not required by law. Electronically signed by: Vernon Valles M.D. 08/23/2020 9:09 AM
[2020-08-23] MEDS ORDERED: GLUCOSE 10 TABS/TUBE PO PRN (09:23)
[2020-08-23] MEDS ORDERED: CARBOHYDRATES FOR HYPOGLYCEMIA PO PRN (09:23)
[2020-08-23] MEDS ORDERED: DEXTROSE 50% 50 ML SYRINGE IV PRN (09:23)
[2020-08-23] MEDS ORDERED: GLUCAGON FOR INJ 1 MG VIAL SQ PRN (09:23)
[2020-08-23] MEDS ORDERED: GLUCOSE 40% GEL 15 GM TUBE PO PRN (09:23)
[2020-08-23] MEDS ORDERED: ARTIFICIAL TEARS OP PRN (09:31)
[2020-08-23] MEDS: DOCUSATE SODIUM/SENNA 50/8.6MG TAB PO SCH (09:43)
[2020-08-23] MEDS: MULTIVITAMIN TAB PO SCH (09:43)
[2020-08-23] MEDS: ASPIRIN 81 MG ECTAB PO SCH (09:43)
[2020-08-23] MEDS: CYANOCOBALAMIN 500 MCG TABLET (VITAMIN B-12) PO SCH (09:43)
[2020-08-23] MEDS ORDERED: POTASSIUM CHLORIDE 40 MEQ in SODIUM CHLORIDE 0.9% 1000ML 1,000 ML IV ONE (10:00)
[2020-08-23] MEDS ORDERED: POTASSIUM CHLORIDE CRTAB 20 MEQ TABCR PO ONE (10:00)
[2020-08-23] MEDS: lisinopril 20 MG TAB PO SCH (10:42)
[2020-08-23] MEDS: LEVOTHYROXINE SODIUM 88 MCG TABLET PO SCH (10:42)
[2020-08-23] MEDS: INSULIN ASPART 100 UNITS/ML 3 ML PEN SC SCH ×4 (11:14→21:27)
[2020-08-23] MEDS: ACETAMINOPHEN 325 MG TAB PO PRN ×2 (12:09→19:22)
[2020-08-23] MEDS: HEPARIN SOD 5,000 UNIT/0.5 ML VIAL SQ SCH ×2 (13:38→21:49)
[2020-08-23] MEDS: HYDROmorphone INJ 0.5 MG/0.5 ML SYR IV PRN ×2 (16:01→19:45)
--- NOTE | 2020-08-23 18:51 | Hospitalist Progress Note ---
Date of Service August 23, 2020 Assessment & Plan Admission and Anticipated Discharge Date Admission Date: August 23, 2020 Subjective Patient seen and examined in room 284. Patient was admitted to the hospital this morning. She has right humeral fracture. Currently arm is in sling and patient appears comfortable. Denies any pain, specifically also denies any chest pain or shortness of breath. Orthopedics to see the pt. Given amatory dysfunction, falls, readmission, case management involvement needed for possible SNF/rehab. Aleks Garcia MD Results & Data Results & Data ([facility]) Vital Signs (Past 12 Hours) Vital Signs Temp Pulse Pulse Resp BP BP Pulse Ox 08/23/20 15:10 36.7 C 65 18 143/77 H 99 08/23/20 15:00 61 08/23/20 11:44 36.9 C 61 18 152/74 H 98 08/23/20 10:14 36.3 C L 73 16 174/82 H 95 08/23/20 08:09 36.3 C L 73 16 174/82 H 95
[2020-08-23] MEDS: FERROUS SULFATE 325 MG TAB PO SCH (21:49)
[2020-08-23] MEDS: CALCIUM 600MG + VIT D 400 IU TAB PO SCH (21:49)
[2020-08-24] MEDS: ACETAMINOPHEN 325 MG TAB PO PRN ×3 (05:36→20:05)
[2020-08-24] MEDS: HYDROmorphone INJ 0.5 MG/0.5 ML SYR IV PRN ×2 (05:37→13:52)
[2020-08-24] MEDS: LEVOTHYROXINE SODIUM 88 MCG TABLET PO SCH (05:38)
[2020-08-24] MEDS: HEPARIN SOD 5,000 UNIT/0.5 ML VIAL SQ SCH ×3 (05:39→21:04)
[2020-08-24 07:46] LABS: Hematocrit (blood only) 33.8 % (37-47); Hemoglobin 10.8 g/dL (12.0-16.0); Immature Granulocytes # (auto) 0.04 K/uL (0.00-0.02); Immature Granulocytes % (auto) 0.6 %; Lymphocytes % (auto) 12.9 %; Mean Corpuscular Hemoglobin 29.3 pg (25-34); Mean Corpuscular Volume 91.6 fL (80-100); Monocytes # (auto) 0.84 K/uL (0.11-0.59); Monocytes % (auto) 12.1 %; Neutrophils # (auto) 5.17 K/uL (1.4-6.5); Neutrophils % (auto) 74.4 %; Platelet Count 259 K/uL (130-400); RDW Coefficient of Variation 17.7 % (11.5-14.5); RDW Standard Deviation 59.9 fL (36.4-46.3); Red Blood Count 3.69 M/uL (4.2-5.4); White Blood Count 6.95 K/uL (4.8-10.8)
[2020-08-24 08:21] LABS: BUN Creatinine Ratio 34.1 (10-20); Calcium 9.1 mg/dl (8.5-10.1); Creatinine Clr Calc Pharmacy 58.9 ml/min; Est GFR (African American) 105.2; Est GFR (Non-African American) 90.8; Potassium 4.3 mmol/L (3.5-5.1)
[2020-08-24] MEDS: lisinopril 20 MG TAB PO SCH (08:52)
[2020-08-24] MEDS: DOCUSATE SODIUM/SENNA 50/8.6MG TAB PO SCH (08:52)
[2020-08-24] MEDS: ATENOLOL 50 MG TABLET PO SCH (08:52)
[2020-08-24] MEDS: CYANOCOBALAMIN 500 MCG TABLET (VITAMIN B-12) PO SCH (08:52)
[2020-08-24] MEDS: MULTIVITAMIN TAB PO SCH (08:52)
[2020-08-24] MEDS: ASPIRIN 81 MG ECTAB PO SCH (08:52)
[2020-08-24] MEDS: INSULIN ASPART 100 UNITS/ML 3 ML PEN SC SCH ×4 (08:53→20:49)
--- NOTE | 2020-08-24 10:00 | Hospitalist Progress Note ---
Date of Service August 24, 2020 Assessment & Plan (1) Asymptomatic hypertensive urgency: Secondary to pain from R humeral fracture secondary to mechanical fall History recurrent falls secondary to ambulatory dysfunction/functional disabilit y Hypertension - cont. home amlodipine, atenolol, lisinopril - will give additional small dose of amlodipine - now BP better controlled but not at goal, may be secondary to pain from fracture - Medical telemetry, cont. to closely monitor R humeral fracture Orthopedics consult RE right humeral fracture Analgesia Fracture of the proximal humerus is in alignment be treated nonoperatively at this time. Continue sling at this time. No range of motion of the right shoulder. Ice to the right shoulder as needed. May loosen the sling for gentle elbow range of motion and wrist range of motion. Plan for follow-up x-rays in [address] Root. Hyperlipidemia on statin Rx Hypothyroidism, euthyroid as of recent TSH Hx TIA/PVD as per records DM2, diet-controlled, well-controlled as of recent outpatient hemoglobin A1c of 6.07 April 2020 ISS BG goal [id number] Malnutrition (low BMI) Nutrition consult RE low BMI Disposition: PT OT eval Social service RE discharge planning, likely placement given recurrent falls DVT prophylaxis. Heparin subcu Full code Patient's granddaughter Ms. Johana Bueno, can be contacted at #[phone]. Admission and Anticipated Discharge Date Admission Date: August 23, 2020 Subjective Patient is lying in bed, in no acute distress. Her right arm is in a sling, patient is in no acute distress and denies any significant pain. Also denies any fevers, chills, chest pain, shortness of breath. Denies abdominal pain nausea or vomiting. Patient feels well overall, and states that she had outpatient x-rays on her back done, she is inquiring about the results as she was notified that her fraud investigator was contacting her at home. Review of Systems Review of Systems: All systems reviewed & are unremarkable except as noted in HPI & below Constitutional: no fever and no chills Respiratory: no cough and no dyspnea Cardiovascular: no chest pain and no palpitations Gastrointestinal: no abdominal pain, no nausea and no vomiting Physical Exam Physical Exam: GENERAL: Elderly female, laying in bed, in no acute distress pleasant, underweight HEENT: NC/AT, pale palpebral conjunctivae, R eye closed from chronic dry eye condition as per patient NECK : Supple, no tenderness CHEST : CTA, no tenderness, no wheezing, rhonchi, crackles HEART : RRR, no obvious murmurs ABDOMEN: soft, nontender, nondistended, + bowel sounds SKIN: Pallor, warm, dry EXTREMITIES : Chronic contractures upper extremities, R shoulder tenderness, chronic right elbow deformity NEUROLOGIC : alert and oriented x3, no facial asymmetry, speech fluent, patient is answering questions appropriately, moves extremities Results & Data Results & Data ([facility]) Vital Signs (Past 12 Hours) Vital Signs Temp Pulse Pulse Resp BP Pulse Ox 08/24/20 07:49 63 08/24/20 04:00 36.6 C 69 18 168/75 H 100 08/24/20 00:00 57 L 08/23/20 23:00 36.8 C 67 18 163/75 H 96 Laboratory Results 08/24/20 08/24/20 08/24/20 Range/Units 07:27 07:15 07:15 WBC 6.95 (4.8-10.8) K/uL RBC 3.69 L (4.2-5.4) M/uL Hgb 10.8 L (12.0-16.0) g/dL Hct 33.8 L (37-47) % MCV 91.6 (80-100) fL MCH 29.3 (25-34) pg MCHC 32.0 (32-36) g/dL RDW Std Deviation 59.9 H (36.4-46.3) fL RDW Coeff of Michael 17.7 H (11.5-14.5) % Plt Count 259 (130-400) K/uL MPV 10.0 (7.4-10.4) fL Immature Gran % (Auto) 0.6 % Neut % (Auto) 74.4 % Lymph % (Auto) 12.9 % Izard % (Auto) 12.1 % Eos % (Auto) 0.0 % Baso % (Auto) 0.0 % Neut # (Auto) 5.17 (1.4-6.5) K/uL Lymph # (Auto) 0.90 L (1.2-3.4) K/uL Izard # (Auto) 0.84 H (0.11-0.59) K/uL Eos # (Auto) 0.00 (0-0.5) K/uL Baso # (Auto) 0.00 (0-0.2) K/uL Immature Gran # (Auto) 0.04 H (0.00-0.02) K/uL Sodium 139 (136-145) mmol/L Potassium 4.3 D (3.5-5.1) mmol/L Chloride 112 H (98-107) mmol/L Carbon Dioxide 21 (21-32) mmol/L Anion Gap 6.0 (3-11) BUN 15 (7-18) mg/dl Creatinine 0.44 L (0.6-1.2) mg/dl Est Cr Clr Drug Dosing 58.9 ml/min Est GFR ( Amer) 105.2 Est GFR (Non-Af Amer) 90.8 BUN/Creatinine Ratio 34.1 H (10-20) Glucose 110 H (70-99) mg/dl POC Glucose 90 (70-99) mg/dl Calcium 9.1 (8.5-10.1) mg/dl 08/23/20 08/23/20 08/23/20 Range/Units 20:34 16:54 11:19 WBC (4.8-10.8) K/uL RBC (4.2-5.4) M/uL Hgb (12.0-16.0) g/dL Hct (37-47) % MCV (80-100) fL MCH (25-34) pg MCHC (32-36) g/dL RDW Std Deviation (36.4-46.3) fL RDW Coeff of Michael (11.5-14.5) % Plt Count (130-400) K/uL MPV (7.4-10.4) fL Immature Gran % (Auto) % Neut % (Auto) % Lymph % (Auto) % Izard % (Auto) % Eos % (Auto) % Baso % (Auto) % Neut # (Auto) (1.4-6.5) K/uL Lymph # (Auto) (1.2-3.4) K/uL Izard # (Auto) (0.11-0.59) K/uL Eos # (Auto) (0-0.5) K/uL Baso # (Auto) (0-0.2) K/uL Immature Gran # (Auto) (0.00-0.02) K/uL Sodium (136-145) mmol/L Potassium (3.5-5.1) mmol/L Chloride (98-107) mmol/L Carbon Dioxide (21-32) mmol/L Anion Gap (3-11) BUN (7-18) mg/dl Creatinine (0.6-1.2) mg/dl Est Cr Clr Drug Dosing ml/min Est GFR ( Amer) Est GFR (Non-Af Amer) BUN/Creatinine Ratio (10-20) Glucose (70-99) mg/dl POC Glucose 133 H 142 H 99 (70-99) mg/dl Calcium (8.5-10.1) mg/dl Medications Administered Current Inpatient Medications Acetaminophen (Acetaminophen 325 Mg Tab) 650 mg PO Q4H PRN PRN Reason: Pain or Fever Stop: 09/22/20 08:03 Last Admin: 08/24/20 05:36 Dose: 650 mg Documented by: Amlodipine Besylate (Amlodipine Besylate 5 Mg Tab) 5 mg PO QAM [facility] Stop: 09/23/20 08:59 Artificial Tears (Artificial Tears) 1 drops OP Q1H PRN PRN Reason: dry eyes Stop: 09/22/20 09:30 Last Admin: 08/24/20 05:50 Dose: 1 drops Documented by: Aspirin (Aspirin 81 Mg Ectab) 81 mg PO QAM [facility] Stop: 09/22/20 08:59 Last Admin: 08/24/20 08:52 Dose: 81 mg Documented by: Atenolol (Atenolol 50 Mg Tablet) 50 mg PO QAM [facility] Stop: 09/23/20 08:59 Last Admin: 08/24/20 08:52 Dose: 50 mg Documented by: Cyanocobalamin (Cyanocobalamin 500 Mcg Tablet (Vitamin B-12)) 1,000 mcg PO QAM [facility] Stop: 09/22/20 08:59 Last Admin: 08/24/20 08:52 Dose: 1,000 mcg Documented by: Dextrose (Dextrose 50% 50 Ml Syringe) 25 - 50 ml IV UD PRN; Protocol PRN Reason: Hypoglycemia Protocol Stop: 09/22/20 09:22 Ferrous Sulfate (Ferrous Sulfate 325 Mg Tab) 325 mg PO HS [facility] Stop: 09/22/20 20:59 Last Admin: 08/23/20 21:49 Dose: Not Given Documented by: Glucagon (Glucagon For Inj 1 Mg Vial) 1 mg SQ UD PRN; Protocol PRN Reason: Hypoglycemia Protocol Stop: 09/22/20 09:22 Glucose (Glucose 10 Tabs/Tube) 4 - 8 tabs PO UD PRN; Protocol PRN Reason: Hypoglycemia Protocol Stop: 09/22/20 09:22 Glucose (Glucose 40% Gel 15 Gm Tube) 15 - 30 gm PO UD PRN; Protocol PRN Reason: Hypoglycemia Protocol Stop: 09/22/20 09:22 Heparin Sodium (Porcine) (Heparin Sod 5,000 Unit/0.5 Ml Vial) 5,000 units SQ Q8 [facility] Stop: 09/22/20 13:59 Last Admin: 08/24/20 05:39 Dose: 5,000 units Documented by: Hydromorphone HCl (Hydromorphone Inj 0.5 Mg/0.5 Ml Syr) 0.25 mg IV Q3H PRN PRN Reason: Pain Stop: 09/06/20 08:03 Last Admin: 08/24/20 05:37 Dose: 0.25 mg Documented by: Promethazine HCl 6.25 mg/ (Sodium Chloride) 50.25 mls @ 201 mls/hr IV Q6H PRN PRN Reason: Nausea And Vomiting Stop: 09/22/20 07:04 Insulin Aspart (Insulin Aspart 100 Units/Ml 3 Ml Pen) 0 units SC ACHS [facility] Stop: 09/22/20 09:24 Last Admin: 08/24/20 08:53 Dose: 2 units Documented by: Levothyroxine Sodium (Levothyroxine Sodium 88 Mcg Tablet) 88 mcg PO DAILYBB [facility] Stop: 09/23/20 06:29 Last Admin: 08/24/20 05:38 Dose: 88 mcg Documented by: Lisinopril (Lisinopril 20 Mg Tab) 20 mg PO QAM [facility] Stop: 09/22/20 09:59 Last Admin: 08/24/20 08:52 Dose: 20 mg Documented by: Miscellaneous (Carbohydrates For Hypoglycemia ) 15 - 30 gm PO UD PRN PRN Reason: Hypoglycemia Protocol Stop: 09/22/20 09:22 Multivitamins (Multivitamin Tab) 1 tab PO QAM [facility] Stop: 09/22/20 08:59 Last Admin: 08/24/20 08:52 Dose: 1 tab Documented by: Multivitamins/Minerals (Calcium 600mg + Vit D 400 Iu Tab) 1 tab PO HS [facility] Stop: 09/22/20 20:59 Last Admin: 08/23/20 21:49 Dose: Not Given Documented by: Oxycodone HCl (Oxycodone Hcl Ir 5 Mg Tab (Immediate Release)) 5 mg PO Q4H PRN PRN Reason: Pain Stop: 09/06/20 08:03 Senna/Docusate Sodium (Docusate Sodium/Senna 50/8.6mg Tab) 2 tab PO QAM [facility] Stop: 09/22/20 08:59 Last Admin: 08/24/20 08:52 Dose: 2 tab Documented by:
--- NOTE | 2020-08-24 10:27 | Orthopedic Consultation ---
Date of Consultation August 24, 2020 Assessment & Plan (1) Fracture, humerus closed: X-rays were reviewed with Dr. Root. Fracture of the proximal humerus is in alignment be treated nonoperatively at this time. Continue sling at this time. No range of motion of the right shoulder. Ice to the right shoulder as needed. May loosen the sling for gentle elbow range of motion and wrist range of motion. Plan for follow-up x-rays in [address] Root. History of Present Illness Reason for Consultation: Right proximal humerus fracture Attending Physician: Juan M Garcia MD History of Present Illness Patient is an 85-year-old white female longstanding history of rheumatoid arthritis. Patient states that she got up to use the restroom the night prior to admission. She lost her balance and fell to the floor onto her right side. She states that she laid there for some time before being able to let people into the house. He denies loss of consciousness. She did not have any shortness of breath or chest pain prior to or after the fall. She had immediate pain in her right shoulder and had difficulty moving it. She was brought to the emergency room where she was seen by the staff. X-rays were taken and was found that she had a proximal humerus fracture. She was placed in a sling [facility] Been asked to take care of her humerus fracture. Allergies Allergy/AdvReac Type Severity Reaction Status Date / Time ezetimibe Allergy Intermediate HIVES Verified 08/23/20 05:02 levothyroxine Allergy Intermediate HIVES Verified 08/23/20 05:02 rofecoxib Allergy Unknown UNKN Verified 08/23/20 05:02 esomeprazole AdvReac Intermediate DIARRHE Verified 08/23/20 05:02 tramadol AdvReac Intermediate NAUSEA & Verified 08/23/20 05:02 VOMITING Home Medications Medication Instructions Recorded Confirmed Type atorvastatin [Lipitor] 10 mg PO QAM 06/27/20 08/23/20 History cyanocobalamin (vitamin B-12) 1,000 mcg PO QAM 06/27/20 08/23/20 History lisinopril [Prinivil] 20 mg PO QAM 06/27/20 08/23/20 History acetaminophen 650 mg PO Q6H PRN #0 tab 06/30/20 08/23/20 Rx amlodipine 5 mg PO QAM 08/23/20 08/23/20 History aspirin 81 mg PO QAM 08/23/20 08/23/20 History atenolol 50 mg PO QAM 08/23/20 08/23/20 History calcium carbonate-vitamin D3 1 tab PO HS 08/23/20 08/23/20 History [Oyster Shell Calcium-Vit D3] ferrous sulfate 325 mg PO HS 08/23/20 08/23/20 History levothyroxine [Synthroid] 88 mcg PO DAILYBB 08/23/20 08/23/20 History mv,Ca,min-folic acid-vit K1 1 tab PO QAM 08/23/20 08/23/20 History [One-A-Day Women's 50 Plus] sennosides-docusate sodium [Senna 2 tab-cap PO QAM 08/23/20 08/23/20 History Plus] Patient History Medical History Elevated troponin Hypertension Hypomagnesemia Surgical History S/P appendectomy Social History Smoking Status: Never smoker Second Hand Exposure: No; Do You Dip or Chew Tobacco: No; Tobacco Cessation Education Requested by Patient: No Hx Alcohol Use: No Hx Substance Use: No Preferred Language: Algerian Communication Ability: Effective Shuttle Final Inspector Required: No Beliefs That Will Affect Care: None Current Living Situation: Alone Other Information That Helps Us Care for You: No Feels Safe at Home: Yes Safety Concerns: Feels Safe At This Time Assistive Devices: Brace/Splint/Immobilizer, Denture - Upper and Denture - Lower Physical Exam Physical Exam: On examination, the patient is an 85-year-old female who appears younger than her stated age. She is alert and oriented to person and place. No acute distress. Pleasant cooperative. On examination of her right upper extremity, she has some swelling around her right shoulder. No overt bruising noted at this time. She has discomfort on palpation at the proximal humerus. She has some swelling in her right elbow from previous injury but currently is nontender. Denies any pain in her right wrist. Noted deformity of her fingers at this time due to rheumatoid arthritis. Sensation is intact. She is able to move her fingers normal for her. No other complaints of the upper extremities at this time. No complaints of new pains in the lower extremities. No gross motor or sensory loss seen at this time Results & Data ([facility]) Vital Signs (Past 12 Hours) Vital Signs Temp Pulse Pulse Resp BP Pulse Ox 08/24/20 07:49 63 08/24/20 04:00 36.6 C 69 18 168/75 H 100 08/24/20 00:00 57 L 08/23/20 23:00 36.8 C 67 18 163/75 H 96 Diagnostic Findings Patient: GERARDO GODDARD Date: 08/23/20MR#: [id number]: [address] ID:[id number]: [address]irth [address]: [address] Zip: [place] [id number]: [birth year]Location: 2NSex: FRoom/Bed: [address] Phy: Juan M Garcia, MDDiagnosis: htn urgencyPri Phy: PCP,NOService Date: 08/23/20Fam Phy:Interpreting Phy: Vernon Valles MDAdmit Phy: Obed Joaquin MD Ordering Phy: Clotilde Quevedo DO cc: ~ XR shoulder RT min 2V routine CLINICAL HISTORY: Right shoulder pain status post trauma COMPARISON: None. DISCUSSION: There is acute humeral neck fracture. The bones are osteopenic. There is no dislocation. There is radiographic evidence of chronic rotator cuff tear. There are old postsurgical changes involving the distal right clavicle. IMPRESSION: 1. Acute right humeral neck fracture. (1) Fracture, humerus closed Encounter type: initial encounter Fracture morphology: unspecified fracture morphology Humerus Location: proximal Laterality: right Qualified Code(s): S42.201A - Unspecified fracture of upper end of right humerus, initial encounter for closed fracture
[2020-08-24] MEDS: amLODIPine BESYLATE 5 MG TAB PO SCH (10:34)
[2020-08-24] MEDS ORDERED: amLODIPine BESYLATE 5 MG TAB PO ONE (13:30)
[2020-08-24] MEDS: CALCIUM 600MG + VIT D 400 IU TAB PO SCH (20:02)
[2020-08-24] MEDS: FERROUS SULFATE 325 MG TAB PO SCH (20:02)
[2020-08-25] MEDS: LEVOTHYROXINE SODIUM 88 MCG TABLET PO SCH (06:01)
[2020-08-25] MEDS: HEPARIN SOD 5,000 UNIT/0.5 ML VIAL SQ SCH ×3 (06:01→21:39)
[2020-08-25] MEDS: HYDROmorphone INJ 0.5 MG/0.5 ML SYR IV PRN ×2 (06:08→13:46)
[2020-08-25] MEDS: ASPIRIN 81 MG ECTAB PO SCH (08:36)
[2020-08-25] MEDS: ATENOLOL 50 MG TABLET PO SCH (08:37)
[2020-08-25] MEDS: lisinopril 20 MG TAB PO SCH (08:37)
[2020-08-25] MEDS: amLODIPine BESYLATE 5 MG TAB PO SCH (08:37)
[2020-08-25] MEDS: MULTIVITAMIN TAB PO SCH (08:38)
[2020-08-25] MEDS: INSULIN ASPART 100 UNITS/ML 3 ML PEN SC SCH ×4 (08:40→21:39)
[2020-08-25] MEDS: DOCUSATE SODIUM/SENNA 50/8.6MG TAB PO SCH (08:44)
[2020-08-25] MEDS: CYANOCOBALAMIN 500 MCG TABLET (VITAMIN B-12) PO SCH (09:33)
[2020-08-25] MEDS: oxyCODONE HCL IR 5 MG TAB (IMMEDIATE RELEASE) PO PRN ×2 (12:58→17:50)
[2020-08-25] MEDS ORDERED: amLODIPine BESYLATE 5 MG TAB PO ONE (13:12)
[2020-08-25] MEDS ORDERED: lisinopril 5 MG TAB PO ONE (13:13)
--- NOTE | 2020-08-25 14:10 | Hospitalist Progress Note ---
Date of Service August 25, 2020 Assessment & Plan (1) Asymptomatic hypertensive urgency: Secondary to pain from R humeral fracture secondary to mechanical fall History recurrent falls secondary to ambulatory dysfunction/functional disabilit y Hypertension - cont. home amlodipine, atenolol, lisinopril - BP still not at goal, may be secondary to pain from fracture - will increase amlodipine to 10 mg daily, and lisinopril 25 mg daily, continue her other cardiac medications as previously - Medical telemetry, cont. to closely monitor R humeral fracture Orthopedics consult RE right humeral fracture Analgesia Fracture of the proximal humerus is in alignment be treated nonoperatively at this time. Continue sling at this time. No range of motion of the right shoulder. Ice to the right shoulder as needed. May loosen the sling for gentle elbow range of motion and wrist range of motion. Plan for follow-up x-rays in [address] Root. Hyperlipidemia on statin Rx Hypothyroidism, euthyroid as of recent TSH Hx TIA/PVD as per records DM2, diet-controlled, well-controlled as of recent outpatient hemoglobin A1c of 6.07 April 2020 ISS BG goal [id number] Malnutrition (low BMI) Nutrition consult RE low BMI Disposition: PT OT eval Social service RE discharge planning, likely placement given recurrent falls DVT prophylaxis. Heparin subcu Full code Patient's granddaughter Ms. Johana Bueno, can be contacted at #[phone]. Admission and Anticipated Discharge Date Admission Date: August 24, 2020 Subjective Patient is lying in bed, in no acute distress. Her right arm is in a sling, patient is in no acute distress and denies any significant pain. Also denies any fevers, chills, chest pain, shortness of breath. Denies abdominal pain nausea or vomiting. Review of Systems Review of Systems: All systems reviewed & are unremarkable except as noted in HPI & below Constitutional: no fever and no chills Respiratory: no cough and no dyspnea Cardiovascular: no chest pain and no palpitations Gastrointestinal: no abdominal pain, no nausea and no vomiting Physical Exam Physical Exam: GENERAL: Elderly female, laying in bed, in no acute distress pleasant, underweight HEENT: NC/AT, pale palpebral conjunctivae NECK : Supple, no tenderness CHEST : CTA, no tenderness, no wheezing, rhonchi, crackles HEART : RRR, no obvious murmurs ABDOMEN: soft, nontender, nondistended, + bowel sounds SKIN: Pallor, warm, dry EXTREMITIES : Chronic contractures upper extremities, R shoulder tenderness, chronic right elbow deformity NEUROLOGIC : alert and oriented x3, no facial asymmetry, speech fluent, patient is answering questions appropriately, moves extremities Results & Data Results & Data ([facility]) Vital Signs (Past 12 Hours) Vital Signs Temp Pulse Pulse Resp BP Pulse Ox 08/25/20 11:08 36.4 C L 78 18 173/78 H 92 08/25/20 07:30 81 08/25/20 06:54 36.8 C 82 18 147/76 H 92 08/25/20 03:26 36.8 C 77 16 156/69 H 100 Medications Administered Current Inpatient Medications Acetaminophen (Acetaminophen 325 Mg Tab) 650 mg PO Q4H PRN PRN Reason: Pain or Fever Stop: 09/22/20 08:03 Last Admin: 08/24/20 20:05 Dose: 650 mg Documented by: Amlodipine Besylate (Amlodipine Besylate 5 Mg Tab) [facility] Stop: 09/25/20 08:59 Artificial Tears (Artificial Tears) 1 drops OP Q1H PRN PRN Reason: dry eyes Stop: 09/22/20 09:30 Last Admin: 08/24/20 05:50 Dose: 1 drops Documented by: Aspirin (Aspirin 81 Mg Ectab) [facility] Stop: 09/22/20 08:59 Last Admin: 08/25/20 08:36 Dose: 81 mg Documented by: Atenolol (Atenolol 50 Mg Tablet) [facility] Stop: 09/23/20 08:59 Last Admin: 08/25/20 08:37 Dose: 50 mg Documented by: Cyanocobalamin (Cyanocobalamin 500 Mcg Tablet (Vitamin B-12)) 1,000 mcg PO QAM [facility] Stop: 09/22/20 08:59 Last Admin: 08/25/20 09:33 Dose: 1,000 mcg Documented by: Dextrose (Dextrose 50% 50 Ml Syringe) 25 - 50 ml IV UD PRN; Protocol PRN Reason: Hypoglycemia Protocol Stop: 09/22/20 09:22 Ferrous Sulfate (Ferrous Sulfate 325 Mg Tab) 325 mg PO [facility] Stop: 09/22/20 20:59 Last Admin: 08/24/20 20:02 Dose: 325 mg Documented by: Glucagon (Glucagon For Inj 1 Mg Vial) 1 mg SQ UD PRN; Protocol PRN Reason: Hypoglycemia Protocol Stop: 09/22/20 09:22 Glucose (Glucose 10 Tabs/Tube) 4 - 8 tabs PO UD PRN; Protocol PRN Reason: Hypoglycemia Protocol Stop: 09/22/20 09:22 Glucose (Glucose 40% Gel 15 Gm Tube) 15 - 30 gm PO UD PRN; Protocol PRN Reason: Hypoglycemia Protocol Stop: 09/22/20 09:22 Heparin Sodium (Porcine) (Heparin Sod 5,000 Unit/0.5 Ml Vial) 5,000 units SQ Q8 [facility] Stop: 09/22/20 13:59 Last Admin: 08/25/20 12:59 Dose: 5,000 units Documented by: Hydromorphone HCl (Hydromorphone Inj 0.5 Mg/0.5 Ml Syr) 0.25 mg IV Q3H PRN PRN Reason: Pain Stop: 09/06/20 08:03 Last Admin: 08/25/20 13:46 Dose: 0.25 mg Documented by: Promethazine HCl 6.25 mg/ (Sodium Chloride) 50.25 mls @ 201 mls/hr IV Q6H PRN PRN Reason: Nausea And Vomiting Stop: 09/22/20 07:04 Insulin Aspart (Insulin Aspart 100 Units/Ml 3 Ml Pen) 0 units SC ACHS [facility] Stop: 09/22/20 09:24 Last Admin: 08/25/20 12:59 Dose: 3 units Documented by: Levothyroxine Sodium (Levothyroxine Sodium 88 Mcg Tablet) 88 mcg PO DAILYBB [facility] Stop: 09/23/20 06:29 Last Admin: 08/25/20 06:01 Dose: 88 mcg Documented by: Lisinopril (Lisinopril 5 Mg Tab) 5 mg PO QAM [facility] Stop: 09/25/20 08:59 Lisinopril (Lisinopril 20 Mg Tab) 20 mg PO QAM [facility] Stop: 09/25/20 08:59 Miscellaneous (Carbohydrates For Hypoglycemia ) 15 - 30 gm PO UD PRN PRN Reason: Hypoglycemia Protocol Stop: 09/22/20 09:22 Multivitamins (Multivitamin Tab) 1 tab PO QAM [facility] Stop: 09/22/20 08:59 Last Admin: 08/25/20 08:38 Dose: 1 tab Documented by: Multivitamins/Minerals (Calcium 600mg + Vit D 400 Iu Tab) 1 tab PO HS [facility] Stop: 09/22/20 20:59 Last Admin: 08/24/20 20:02 Dose: 1 tab Documented by: Oxycodone HCl (Oxycodone Hcl Ir 5 Mg Tab (Immediate Release)) 5 mg PO Q4H PRN PRN Reason: Pain Stop: 09/06/20 08:03 Last Admin: 08/25/20 12:58 Dose: 5 mg Documented by: Senna/Docusate Sodium (Docusate Sodium/Senna 50/8.6mg Tab) 2 tab PO QAM [facility] Stop: 09/22/20 08:59 Last Admin: 08/25/20 08:44 Dose: Not Given Documented by:
[2020-08-25] MEDS: FERROUS SULFATE 325 MG TAB PO SCH (21:38)
[2020-08-25] MEDS: ACETAMINOPHEN 325 MG TAB PO PRN (21:39)
[2020-08-25] MEDS: CALCIUM 600MG + VIT D 400 IU TAB PO SCH (21:40)
[2020-08-26] MEDS: HEPARIN SOD 5,000 UNIT/0.5 ML VIAL SQ SCH (05:36)
[2020-08-26] MEDS: LEVOTHYROXINE SODIUM 88 MCG TABLET PO SCH (05:36)
[2020-08-26] MEDS ORDERED: ACETAMINOPHEN 325 MG TAB PO PRN (06:46)
[2020-08-26] MEDS: ATENOLOL 50 MG TABLET PO SCH (08:47)
[2020-08-26] MEDS: ASPIRIN 81 MG ECTAB PO SCH (08:47)
[2020-08-26] MEDS: oxyCODONE HCL IR 5 MG TAB (IMMEDIATE RELEASE) PO PRN ×2 (08:47→12:39)
[2020-08-26] MEDS: CYANOCOBALAMIN 500 MCG TABLET (VITAMIN B-12) PO SCH (08:48)
[2020-08-26] MEDS: MULTIVITAMIN TAB PO SCH (08:48)
[2020-08-26] MEDS: DOCUSATE SODIUM/SENNA 50/8.6MG TAB PO SCH (08:48)
[2020-08-26] MEDS: INSULIN ASPART 100 UNITS/ML 3 ML PEN SC SCH ×2 (08:50→12:07)
[2020-08-26] MEDS ORDERED: lisinopril 5 MG TAB PO SCH (09:00)
[2020-08-26] MEDS ORDERED: lisinopril 20 MG TAB PO SCH (09:00)
[2020-08-26] MEDS ORDERED: amLODIPine BESYLATE 5 MG TAB PO SCH (09:00)
--- NOTE | 2020-08-26 09:19 | Hospitalist Progress Note ---
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 Root. Fracture of the proximal humerus is in alignment be treated nonoperatively at this time. Continue sling at this time. No range of motion of the right shoulder. Ice to the right shoulder as needed. May loosen the sling for gentle elbow range of motion and wrist range of motion. Plan for follow-up x-rays in [address] Root." Hyperlipidemia on statin Rx Hypothyroidism, euthyroid as of recent TSH History of TIA/PVD as per records DM2, diet-controlled -well-controlled as of recent outpatient hemoglobin A1c of 6.07 April 2020 -continue diabetes diet Malnutrition (low BMI) -she had nutrition consult in the hospital for low BMI Patient's granddaughter Ms. Johana Bueno, can be contacted at #[phone]. 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 Right arm in sling. Otherwise sitting comfortably on the bed. Patient denies acute distress. Breathing on room air. no shortness of breath. no chest pain. no abdomen pain. no dizziness. no headache. no nausea. no vomiting. discharge plans discussed Review of Systems Review of Systems: All systems reviewed & are unremarkable except as noted in Subjective Physical Exam Constitutional: cooperative Eyes: PERRL, conjunctivae normal, anicteric sclerae EOM intact bilaterally ENMT: external ear and nose normal, oropharynx normal Neck: normal visual inspection Respiratory: normal respiratory effort, lungs clear to auscultation Cardiovascular: Rate/Rhythm: regular rate and regular rhythm Gastrointestinal (Abdomen): normal bowel sounds, soft, nontender, no hepatosplenomegaly Musculoskeletal: Head/Neck/Chest: normocephalic Extremities: + elbow/forearm abnormality (right arm in sling) Neurologic: PERRL, EOMI, accommodation nl, no face palsy, no dysarthria Psychiatric: A+Ox3, euthymic affect Results & Data Results & Data ([facility]) Vital Signs (Past 12 Hours) Vital Signs Temp Pulse Pulse Resp BP Pulse Ox 08/26/20 07:20 36.3 C L 84 18 156/79 H 92 08/26/20 03:55 36.7 C 75 18 145/69 H 98 08/26/20 00:41 74 08/25/20 23:59 36.7 C 78 17 130/70 96
--- NOTE | 2020-08-26 09:27 | Discharge Summary ---
Date of Service August 26, 2020 Admission HPI Per Admitting Provider History obtained from patient, family, and records. Medical history significant for rheumatoid arthritis, hypertension, hyperlipidemia, hypothyroidism, hx TIA/PVD as per records, DM2 diet-controlled, chronic anemia (last outpatient hemoglobin of 11 from July 2020). Last confinement June 2020 for rhabdomyolysis secondary to immobility at home. Patient discharged to [facility] for rehab. Patient discharged home with home health services last month. Early this morning patient got up from bed to make her way to the bathroom when she became off balance leading to a fall landing on her right side. Achy right shoulder pain. No head trauma, no headache, no syncope, no LOC. Patient denies chest pain, S OB. Patient able to activate her life alert button. Patient brought to the ER by EMS. 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 in setting of ground level fall, Right humeral fracture, Ambulatory dysfunction Hyperlipidemia Hypothyroidism, DM2, diet-controlled Malnutrition (low BMI of 16.7) History of TIA/PVD as per records Discharge Exam Constitutional cooperative Eyes PERRL, conjunctivae normal, anicteric sclerae EOM intact bilaterally ENMT external ear and nose normal, oropharynx normal Neck normal visual inspection Respiratory normal respiratory effort, lungs clear to auscultation Cardiovascular Rate/Rhythm: regular rate and regular rhythm Gastrointestinal (Abdomen) normal bowel sounds, soft, nontender, no hepatosplenomegaly Musculoskeletal Head/Neck/Chest: normocephalic Extremities: + elbow/forearm abnormality (right arm in sling) Neurologic PERRL, EOMI, accommodation nl, no face palsy, no dysarthria Psychiatric A+Ox3, euthymic affect Discharge Data Allergies Allergy/AdvReac Type Severity Reaction Status Date / Time ezetimibe Allergy Intermediate HIVES Verified 08/23/20 05:02 levothyroxine Allergy Intermediate HIVES Verified 08/23/20 05:02 rofecoxib Allergy Unknown UNKN Verified 08/23/20 05:02 esomeprazole AdvReac Intermediate DIARRHE Verified 08/23/20 05:02 tramadol AdvReac Intermediate NAUSEA & Verified 08/23/20 05:02 VOMITING Consultations 08/23/20 06:15 ED Decision to Admit Stat 08/23/20 08:04 Consult Case Management - Discharge Planning Routine 08/23/20 13:24 Consult Orthopedic Surgery Routine Hospital Course (1) Asymptomatic hypertensive urgency: -blood pressure 200/88 when initial in the ED -Secondary to pain from R humeral fracture secondary to mechanical fall -History recurrent falls secondary to ambulatory dysfunction/functional disability Hypertension -continue the increased amlodipine from home dose 5 mg daily to 10 mg daily -for ease of dosing, lisinopril to be continued as 20 mg daily on discharge -Patient will also need to follow up with her primary care doctor to continue management of other health care needs such as hypertension 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 Root. Fracture of the proximal humerus is in alignment be treated nonoperatively at this time. Continue sling at this time. No range of motion of the right shoulder. Ice to the right shoulder as needed. May loosen the sling for gentle elbow range of motion and wrist range of motion. Plan for follow-up x-rays in [address] Root." Hyperlipidemia on statin Rx Hypothyroidism, euthyroid as of recent TSH History of TIA/PVD as per records DM2, diet-controlled -well-controlled as of recent outpatient hemoglobin A1c of 6.07 April 2020 -continue diabetes diet Malnutrition (low BMI) -she had nutrition consult in the hospital for low BMI Patient's granddaughter Ms. Johana Bueno, can be contacted at #[phone]. 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 in setting of ground level fall, Right (closed) humeral fracture, Ambulatory dysfunction Hyperlipidemia Hypothyroidism, DM2, diet-controlled Malnutrition (low BMI of 16.7) History of TIA/PVD as per records Total Time Total Time Spent Total Time Spent (In Minutes): 40 minutes Total Time Includes: Examination of the Patient, Discharge Planning, Medication Reconciliation and Communication With Other Providers Discharge Plan Discharge Items Patient Disposition: Transfer Shelter Fac Reason For Visit: htn urgency Discharge Diagnosis: Asymptomatic hypertensive urgency Hypertension 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 [Physician] - (Follow up with Dr. Root in 2 weeks for repeat xrays of the right proximal humerus.) PCP,NO [Primary Care Provider] - Diet: Carb Consistent or DM2 Moon Attending Provider Instructions: discharge to [facility] level of care discharge medications sent electronically to [facility], [address] [place] [address], [place] [address] which is the preferred pharmacy of [place] Yoel [employer] Provider Instructions: Orthopedic recommendations on August 24, 2020 in regards to humerus fracture "X-rays were reviewed with Dr. Root. Fracture of the proximal humerus is in alignment be treated nonoperatively at this time. Continue sling at this time. No range of motion of the right shoulder. Ice to the right shoulder as needed. May loosen the sling for gentle elbow range of motion and wrist range of motion. Plan for follow-up x-rays in [address] Root." Patient will also need to follow up with her primary care doctor to continue management of other health care needs such as hypertension Pending Studies at Discharge: No Stand-Alone Forms: My [facility] Skilled Items Patient informed of condition?: Yes DNR: Yes Discharge Level of Care: Skilled Communicable Disease: No Discharge Prognosis: Stable Lines: None Urinary Catheter: No Medications and DC Order Prescriptions: New amlodipine [Norvasc] 5 mg Tablet 10 mg PO QAM 30 Days Qty: 60 RF: 0 acetaminophen 325 mg Tablet 325 mg PO Q6H PRN (Reason: fever or pain) 7 Days Qty: 28 RF: 0 Continued atorvastatin [Lipitor] 10 mg tablet 10 mg PO QAM RF: 0 lisinopril [Prinivil] 20 mg tablet 20 mg PO QAM RF: 0 cyanocobalamin (vitamin B-12) 1,000 mcg Tablet 1,000 mcg PO QAM RF: 0 levothyroxine [Synthroid] 88 mcg tablet 88 mcg PO DAILYBB RF: 0 ferrous sulfate 325 mg (65 mg iron) tablet 325 mg PO HS RF: 0 calcium carbonate-vitamin D3 [Oyster Shell Calcium-Vit D3] 500 mg(1,250mg) -2 00 unit tablet 1 tab PO HS RF: 0 One-A-Day Women's 50 Plus 400-20 mcg tablet 1 tab PO QAM RF: 0 sennosides-docusate sodium [Senna Plus] 8.6-50 mg Tablet 2 tab-cap PO QAM RF: 0 atenolol 50 mg Tablet 50 mg PO QAM RF: 0 aspirin 81 mg Tablet,Delayed Release (Dr/Ec) 81 mg PO QAM RF: 0 Discontinued acetaminophen 650 mg Tablet Extended Release 650 mg PO Q6H PRN (Reason: pain) Qty: 0 RF: 0 amlodipine 5 mg Tablet 5 mg PO QAM RF: 0 Discharge Orders: Discharge Order (Routine); Ordered 08/26/20 Ordered By: Paul Benítez Admission Data Admit Date/Time: 08/24/20 13:33 Attending Provider: Paul Benítez Admit Provider: Obed Joaquin Primary Care Provider: PCP,NO Other Providers: Obed Joaquin ; Jet Escobar ; Sivakumar Zavala ; Michael Mckee ; Betty Swift Thomas J ; Eveline Craig ; Josué Schafer ; Wm Bryant ; Víctor Bunn ; Wm Olson ; Reece Dunn. ; Víctor Carroll ; Tommy Weinstein ; Foreign Singh ; Kendrick Gibson ; Beltran Santos ; Sea Guzman ; Eveline Hu ; Kennedy Nelson ; Robin Root ; Domi Corbett ; Hamilton Palma ; Chichi Porras
== END 2020-08-26 13:17 | DRG 543 ==
LOC: ED 04:14 → 2N 04:14 → SUATTDRO 08-24 13:33